=== PATIENT | female | born 1935 | race Caucasian/White ===

== ENCOUNTER → 2016-09-12 | Outpatient (REF) ==
[2016-09-12 09:27] LABS: MEAN CORPUSCULAR HEMOGLOBIN 30.8 pg (27.0-33.0); MEAN CORPUSCULAR HGB CONC 33.1 g/dl (32.0-36.5); MEAN CORPUSCULAR VOLUME 93.1 fl (80.0-96.0); RED CELL DISTRIBUTION WIDTH 12.9 % (11.5-14.5); WHITE BLOOD COUNT 6.7 K/mm3 (4.0-10.0)
[2016-09-12 10:30] LABS: ALBUMIN 3.4 GM/DL (3.2-5.2); ALKALINE PHOSPHATASE 46 U/L (45-117); ALT/SGPT 28 U/L (12-78); ANION GAP 8 MEQ/L (8-16); AST/SGOT 26 U/L (15-37); BILIRUBIN,TOTAL 0.4 MG/DL (0.2-1.0); BLOOD UREA NITROGEN 26 MG/DL (7-18); CALCIUM LEVEL 9.6 MG/DL (8.8-10.2); CARBON DIOXIDE LEVEL 26 MEQ/L (21-32); CHLORIDE LEVEL 108 MEQ/L (98-107); CREATININE FOR GFR 0.88 MG/DL (0.55-1.02); GLOMERULAR FILTRATION RATE > 60.0 (>32); GLUCOSE, FASTING 115 MG/DL (83-110); POTASSIUM SERUM 4.2 MEQ/L (3.5-5.1); SODIUM LEVEL 142 MEQ/L (136-145); TOTAL PROTEIN 6.5 GM/DL (6.4-8.2)
== END ==
LOC: SKLAB2 08:00
PROVIDERS: ATTEND Internal Medicine
DX: E03.9 Hypothyroidism, unspecified (principal)

== ENCOUNTER → 2016-10-13 | Outpatient (REF) ==
[2016-10-13 13:37] LABS: FREE T4 1.44 NG/DL (0.76-1.46)
== END ==
LOC: SKLAB2 07:00
PROVIDERS: ATTEND Internal Medicine
DX: E07.9 Disorder of thyroid, unspecified (principal)

== ENCOUNTER → 2016-11-24 | Outpatient (REF) | payer MEDICARE, MEDICAID | LOC: SKLAB2 07:30 | PROVIDERS: ATTEND Internal Medicine | DX: E03.9 Hypothyroidism, unspecified (principal) ==

== ENCOUNTER → 2016-12-05 | Outpatient (REF) | payer MEDICARE, MEDICAID ==
[2016-12-05 09:09] LABS: ANION GAP 12 MEQ/L (8-16); BLOOD UREA NITROGEN 22 MG/DL (7-18); CARBON DIOXIDE LEVEL 24 MEQ/L (21-32); CHLORIDE LEVEL 107 MEQ/L (98-107); GLOMERULAR FILTRATION RATE > 60.0 (>32); GLUCOSE, FASTING 91 MG/DL (83-110); POTASSIUM SERUM 4.4 MEQ/L (3.5-5.1); SODIUM LEVEL 143 MEQ/L (136-145)
== END ==
LOC: SKLAB2 07:30
PROVIDERS: ATTEND Internal Medicine
DX: I10 Essential (primary) hypertension (principal)

== ENCOUNTER → 2017-03-13 | Outpatient (REF) | payer MEDICARE, MEDICAID ==
[2017-03-13 09:51] LABS: ANION GAP 5 MEQ/L (8-16); BLOOD UREA NITROGEN 31 MG/DL (7-18); CALCIUM LEVEL 9.2 MG/DL (8.8-10.2); CARBON DIOXIDE LEVEL 29 MEQ/L (21-32); CHLORIDE LEVEL 107 MEQ/L (98-107); CREATININE FOR GFR 0.74 MG/DL (0.55-1.02); GLOMERULAR FILTRATION RATE > 60.0 (>32); GLUCOSE, FASTING 85 MG/DL (83-110); POTASSIUM SERUM 4.2 MEQ/L (3.5-5.1); SODIUM LEVEL 141 MEQ/L (136-145)
== END ==
LOC: SKLAB4 07:05
PROVIDERS: ATTEND Internal Medicine
DX: I50.9 Heart failure, unspecified (principal); E03.9 Hypothyroidism, unspecified; E11.9 Type 2 diabetes mellitus without complications

== ENCOUNTER → 2017-06-12 | Outpatient (REF) | payer MEDICARE, MEDICAID ==
[2017-06-12 08:44] LABS: ANION GAP 3 MEQ/L (8-16); BLOOD UREA NITROGEN 20 MG/DL (7-18); CALCIUM LEVEL 8.9 MG/DL (8.8-10.2); CARBON DIOXIDE LEVEL 33 MEQ/L (21-32); CHLORIDE LEVEL 106 MEQ/L (98-107); CREATININE FOR GFR 0.69 MG/DL (0.55-1.30); GLOMERULAR FILTRATION RATE > 60.0 (>32); GLUCOSE, FASTING 89 MG/DL (70-100); POTASSIUM SERUM 4.4 MEQ/L (3.5-5.1); SODIUM LEVEL 142 MEQ/L (136-145)
== END ==
LOC: SKLAB4 09:32
DX: I10 Essential (primary) hypertension (principal)
CPT/HCPCS: 36415

== ENCOUNTER → 2017-09-08 | Outpatient (REF) | payer MEDICARE, MEDICAID ==
[2017-09-08 12:47] LABS: CHOLESTEROL LEVEL 184 MG/DL (<200); HDL CHOLESTEROL 44 MG/DL (>40); TRIGLYCERIDES LEVEL 368 MG/DL (<150)
[2017-09-08 12:48] LABS: CHOLESTEROL RISK RATIO 4.181 (<5); LDL CHOLESTEROL 66.4 MG/DL (<100); NON-HDL-C 140 MG/DL
== END ==
LOC: SKLAB4 07:06
DX: E78.5 Hyperlipidemia, unspecified (principal)
CPT/HCPCS: 80061

== ENCOUNTER → 2017-09-11 | Outpatient (REF) | payer MEDICARE, MEDICAID ==
[2017-09-11 10:08] LABS: ANION GAP 7 MEQ/L (8-16); BLOOD UREA NITROGEN 26 MG/DL (7-18); CARBON DIOXIDE LEVEL 29 MEQ/L (21-32); CHLORIDE LEVEL 106 MEQ/L (98-107); CREATININE FOR GFR 0.73 MG/DL (0.55-1.30); GLOMERULAR FILTRATION RATE > 60.0 (>32); GLUCOSE, FASTING 92 MG/DL (70-100); SODIUM LEVEL 142 MEQ/L (136-145)
[2017-09-11 11:05] LABS: ESTIMATED AVERAGE GLUCOSE 114 MG/DL (60-110); HEMOGLOBIN A1c 5.6 %
== END ==
LOC: SKLAB4 09:49
DX: E78.5 Hyperlipidemia, unspecified (principal); E11.9 Type 2 diabetes mellitus without complications; E03.9 Hypothyroidism, unspecified; I50.9 Heart failure, unspecified
CPT/HCPCS: 84443

== ENCOUNTER → 2017-12-11 | Outpatient (REF) | payer MEDICARE, MEDICAID ==
[2017-12-11 10:43] LABS: ANION GAP 8 MEQ/L (8-16); BLOOD UREA NITROGEN 28 MG/DL (7-18); CARBON DIOXIDE LEVEL 29 MEQ/L (21-32); CHLORIDE LEVEL 105 MEQ/L (98-107); CREATININE FOR GFR 0.81 MG/DL (0.55-1.30); GLOMERULAR FILTRATION RATE > 60.0 (>32); GLUCOSE, FASTING 126 MG/DL (70-100); POTASSIUM SERUM 4.1 MEQ/L (3.5-5.1); SODIUM LEVEL 142 MEQ/L (136-145)
== END ==
LOC: SKLAB4 10:07
DX: N18.9 Chronic kidney disease, unspecified (principal)
CPT/HCPCS: 80048

== ENCOUNTER → 2018-03-12 | Outpatient (REF) | payer MEDICARE, MEDICAID ==
[2018-03-12 08:55] LABS: ANION GAP 4 MEQ/L (8-16); BLOOD UREA NITROGEN 27 MG/DL (7-18); CALCIUM LEVEL 8.9 MG/DL (8.8-10.2); CARBON DIOXIDE LEVEL 32 MEQ/L (21-32); CHLORIDE LEVEL 104 MEQ/L (98-107); CHOLESTEROL LEVEL 166 MG/DL (<200); CHOLESTEROL RISK RATIO 4.048 (<5); GLOMERULAR FILTRATION RATE > 60.0 (>32); GLUCOSE, FASTING 101 MG/DL (70-100); HDL CHOLESTEROL 41 MG/DL (>40); LDL CHOLESTEROL 77 MG/DL (<100); NON-HDL-C 125 MG/DL; POTASSIUM SERUM 4.3 MEQ/L (3.5-5.1); SODIUM LEVEL 140 MEQ/L (136-145); TRIGLYCERIDES LEVEL 238 MG/DL (<150)
[2018-03-12 10:26] LABS: ESTIMATED AVERAGE GLUCOSE 131 MG/DL (60-110); HEMOGLOBIN A1c 6.2 %
== END ==
LOC: SKLAB4 11:27
DX: E03.9 Hypothyroidism, unspecified (principal); I50.9 Heart failure, unspecified; E11.9 Type 2 diabetes mellitus without complications
CPT/HCPCS: 84443

== ENCOUNTER → 2018-06-11 | Outpatient (REF) | payer MEDICARE, MEDICAID ==
[2018-06-11 09:32] LABS: BLOOD UREA NITROGEN 22 MG/DL (7-18); CALCIUM LEVEL 8.7 MG/DL (8.8-10.2); CARBON DIOXIDE LEVEL 31 MEQ/L (21-32); CHLORIDE LEVEL 105 MEQ/L (98-107); CREATININE FOR GFR 0.71 MG/DL (0.55-1.30); GLOMERULAR FILTRATION RATE > 60.0 (>32); GLUCOSE, FASTING 98 MG/DL (70-100); POTASSIUM SERUM 4.2 MEQ/L (3.5-5.1); SODIUM LEVEL 141 MEQ/L (136-145)
== END ==
LOC: SKLAB4 12:34
PROVIDERS: ATTEND Internal Medicine
DX: N18.9 Chronic kidney disease, unspecified (principal)

== ENCOUNTER → 2018-09-10 | Outpatient (REF) | payer MEDICARE, MEDICAID ==
[2018-09-10 08:27] LABS: HEMOGLOBIN A1c 6.2 %
[2018-09-10 08:39] LABS: BLOOD UREA NITROGEN 23 MG/DL (7-18); CALCIUM LEVEL 9.4 MG/DL (8.8-10.2); CARBON DIOXIDE LEVEL 34 MEQ/L (21-32); CHLORIDE LEVEL 106 MEQ/L (98-107); CHOLESTEROL LEVEL 176 MG/DL (<200); CHOLESTEROL RISK RATIO 4.512 (<5); CREATININE FOR GFR 0.76 MG/DL (0.55-1.30); GLOMERULAR FILTRATION RATE > 60.0 (>32); GLUCOSE, FASTING 88 MG/DL (70-100); HDL CHOLESTEROL 39 MG/DL (>40); LDL CHOLESTEROL 57 MG/DL (<100); NON-HDL-C 137 MG/DL; POTASSIUM SERUM 4.3 MEQ/L (3.5-5.1); SODIUM LEVEL 143 MEQ/L (136-145); TRIGLYCERIDES LEVEL 399 MG/DL (<150)
== END ==
LOC: SKLAB4 08:47
PROVIDERS: ATTEND Internal Medicine
DX: E03.9 Hypothyroidism, unspecified (principal); E11.9 Type 2 diabetes mellitus without complications; N18.9 Chronic kidney disease, unspecified

== ENCOUNTER → 2018-12-10 | Outpatient (REF) | payer MEDICARE, MEDICAID ==
[2018-12-10 09:13] LABS: BLOOD UREA NITROGEN 23 MG/DL (7-18); CALCIUM LEVEL 9.4 MG/DL (8.8-10.2); CARBON DIOXIDE LEVEL 31 MEQ/L (21-32); CHLORIDE LEVEL 104 MEQ/L (98-107); CREATININE FOR GFR 0.78 MG/DL (0.55-1.30); GLOMERULAR FILTRATION RATE > 60.0 (>32); GLUCOSE, FASTING 89 MG/DL (70-100); POTASSIUM SERUM 4.2 MEQ/L (3.5-5.1); SODIUM LEVEL 142 MEQ/L (136-145)
== END ==
LOC: SKLAB4 10:03
PROVIDERS: ATTEND Internal Medicine
DX: N18.9 Chronic kidney disease, unspecified (principal)

== ENCOUNTER → 2018-12-28 | Outpatient (REF) | payer MEDICARE, MEDICAID ==
[2018-12-28 00:26] LABS: HEMATOCRIT 45.1 % (36.0-47.0); MEAN CORPUSCULAR HEMOGLOBIN 31.2 pg (27.0-33.0); MEAN CORPUSCULAR HGB CONC 33.3 g/dl (32.0-36.5); MEAN CORPUSCULAR VOLUME 93.8 fl (80.0-96.0); PLATELET COUNT, AUTOMATED 258 10^3/uL (150-450); RED BLOOD COUNT 4.81 10^6/uL (4.00-5.40); WHITE BLOOD COUNT 10.9 10^3/uL (4.0-10.0)
[2018-12-28 01:06] LABS: CREATININE FOR GFR 0.96 MG/DL (0.55-1.30); GLOMERULAR FILTRATION RATE 59.2 (>32); POTASSIUM SERUM 4.3 MEQ/L (3.5-5.1)
== END ==
LOC: SKLAB4 12-27 23:49
PROVIDERS: ATTEND Internal Medicine
DX: I47.9 Paroxysmal tachycardia, unspecified (principal); E78.5 Hyperlipidemia, unspecified; E03.9 Hypothyroidism, unspecified; E11.9 Type 2 diabetes mellitus without complications; I50.9 Heart failure, unspecified

== ENCOUNTER → 2018-12-28 | Outpatient (REF) | payer MEDICARE, MEDICAID ==
--- NOTE | 2018-12-28 23:20 | ECGEPIP ---
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
== END ==
LOC: SKLAB4 10:54
PROVIDERS: ATTEND Internal Medicine
DX: R00.9 Unspecified abnormalities of heart beat (principal)

== ENCOUNTER → 2019-03-11 | Outpatient (REF) | payer MEDICARE, MEDICAID ==
[2019-03-11 09:45] LABS: BLOOD UREA NITROGEN 19 MG/DL (7-18); CALCIUM LEVEL 9.2 MG/DL (8.8-10.2); CARBON DIOXIDE LEVEL 34 MEQ/L (21-32); CHLORIDE LEVEL 107 MEQ/L (98-107); CHOLESTEROL LEVEL 137 MG/DL (<200); CHOLESTEROL RISK RATIO 3.425 (<5); CREATININE FOR GFR 0.76 MG/DL (0.55-1.30); GLOMERULAR FILTRATION RATE > 60.0 (>32); GLUCOSE, FASTING 87 MG/DL (70-100); HDL CHOLESTEROL 40 MG/DL (>40); LDL CHOLESTEROL 51 MG/DL (<100); NON-HDL-C 97 MG/DL; POTASSIUM SERUM 4.3 MEQ/L (3.5-5.1); SODIUM LEVEL 144 MEQ/L (136-145); TRIGLYCERIDES LEVEL 231 MG/DL (<150)
== END ==
LOC: SKLAB4 10:20
PROVIDERS: ATTEND Internal Medicine
DX: E78.5 Hyperlipidemia, unspecified (principal); E03.9 Hypothyroidism, unspecified; Z79.899 Other long term (current) drug therapy

== ENCOUNTER → 2019-06-18 | Outpatient (REF) | payer MEDICARE, MEDICAID ==
[2019-06-18 07:35] LABS: BLOOD UREA NITROGEN 16 MG/DL (7-18); CALCIUM LEVEL 9.3 MG/DL (8.8-10.2); CARBON DIOXIDE LEVEL 33 MEQ/L (21-32); CHLORIDE LEVEL 106 MEQ/L (98-107); CREATININE FOR GFR 0.76 MG/DL (0.55-1.30); GLOMERULAR FILTRATION RATE > 60.0 (>32); GLUCOSE, FASTING 87 MG/DL (70-100); POTASSIUM SERUM 4.4 MEQ/L (3.5-5.1); SODIUM LEVEL 144 MEQ/L (136-145)
== END ==
LOC: SKLAB4 10:27
PROVIDERS: ATTEND Internal Medicine
DX: I10 Essential (primary) hypertension (principal)

== ENCOUNTER → 2019-09-10 | Outpatient (REF) | payer MEDICARE, MEDICAID ==
[2019-09-10 09:22] LABS: HEMOGLOBIN A1c 5.9 %
[2019-09-10 09:44] LABS: BLOOD UREA NITROGEN 22 MG/DL (7-18); CALCIUM LEVEL 8.8 MG/DL (8.8-10.2); CARBON DIOXIDE LEVEL 31 MEQ/L (21-32); CHLORIDE LEVEL 106 MEQ/L (98-107); CHOLESTEROL LEVEL 132 MG/DL (<200); CHOLESTEROL RISK RATIO 3.771 (<5); GLOMERULAR FILTRATION RATE > 60.0 (>32); GLUCOSE, FASTING 85 MG/DL (70-100); HDL CHOLESTEROL 35 MG/DL (>40); LDL CHOLESTEROL 43 MG/DL (<100); NON-HDL-C 97 MG/DL; POTASSIUM SERUM 4.1 MEQ/L (3.5-5.1); SODIUM LEVEL 143 MEQ/L (136-145); THYROID STIMULATING HORMONE 0.508 uIU/ML (0.358-3.740); TRIGLYCERIDES LEVEL 272 MG/DL (<150)
== END ==
LOC: SKLAB4 09:55
PROVIDERS: ATTEND Internal Medicine
DX: N18.9 Chronic kidney disease, unspecified (principal); E78.5 Hyperlipidemia, unspecified; E03.9 Hypothyroidism, unspecified; Z79.899 Other long term (current) drug therapy

== ENCOUNTER → 2019-12-10 | Outpatient (REF) | payer MEDICARE, MEDICAID ==
[~2019-12-10] MED LIST: ACET-907 PO; CALC600T66 PO; COLA100C5 PO; DULC10SU2 PR; ELIQ5TAB PO; METO1TAB87 PO; MILKSUS21 PO; MULTCAP PO; OLAN2.5T25 PO; POLYOPD OU; PRIL20TA2 PO; PROZ10CA7 PO; SYNT75TA PO; TOPR25TA PO
[2019-12-10 08:52] LABS: BLOOD UREA NITROGEN 13 MG/DL (7-18); CALCIUM LEVEL 8.8 MG/DL (8.8-10.2); CARBON DIOXIDE LEVEL 29 MEQ/L (21-32); CHLORIDE LEVEL 108 MEQ/L (98-107); CREATININE FOR GFR 0.66 MG/DL (0.55-1.30); GLOMERULAR FILTRATION RATE > 60.0 (>32); GLUCOSE, FASTING 83 MG/DL (70-100); POTASSIUM SERUM 4.3 MEQ/L (3.5-5.1); SODIUM LEVEL 143 MEQ/L (136-145)
== END ==
LOC: SKLAB4 11:39
DX: I25.10 Atherosclerotic heart disease of native coronary artery without angina pectoris (principal); I50.9 Heart failure, unspecified

== ENCOUNTER 2019-12-29 10:54 | Observation (INO) | payer MEDICAID, MEDICARE ==
[~2019-12-29] VITALS: Ht 165.1 cm; Wt 72.8 kg
[2019-12-29] MEDS: METOPROLOL 5 MG/5 ML VIAL IV SCH ×3 (11:23→11:45)
[2019-12-29] MEDS ORDERED: DIGOXIN INJ 0.5 MG/2 ML AMP (J1160) IV STA (11:31)
[2019-12-29 11:40] LABS: FREE T4 1.38 NG/DL (0.76-1.46); MAGNESIUM LEVEL 1.6 MG/DL (1.8-2.4); THYROID STIMULATING HORMONE 1.06 uIU/ML (0.358-3.740)
[2019-12-29 11:55] LABS: INR 1.04; PROTHROMBIN TIME 13.8 SECONDS (12.5-14.3)
[2019-12-29 11:56] LABS: PARTIAL THROMBOPLASTIN TIME 28.4 SECONDS (24.2-38.5)
[2019-12-29] MEDS ORDERED: MAG SULF 1GM/100ML (MAG RUN) 1 GM in IV 1 EA IV ONE (12:00)
--- NOTE | 2019-12-29 12:07 | REPVR ---
PROCEDURE INFORMATION: Exam: XR Chest, 1 View Exam date and time: 12/29/2019 11:18 AM Age: 84 years old Clinical indication: Shortness of breath; Additional info: Chest pain TECHNIQUE: Imaging protocol: XR of the chest Views: 1 view. COMPARISON: No relevant prior studies available. FINDINGS: Lungs: Asymmetric left basilar airspace/pleural disease obscuring the left costophrenic angle. Emphysematous change and mild interstitial prominence. Heart/Mediastinum: No cardiomegaly. Vasculature: Calcification of the thoracic aorta. Bones/joints: Osteopenia and degenerative change. Left rib fractures, of uncertain age. IMPRESSION: 1. Asymmetric left basilar airspace/pleural disease obscuring the left costophrenic angle. 2. Osteopenia and left rib fractures, of uncertain age. Electronically signed by: [place] Lopes On 12/29/2019 12:07:17 PM
[2019-12-29] MEDS ORDERED: MILKSUS21 PO (13:26)
[2019-12-29] MEDS ORDERED: SYNT75TA PO (13:26)
[2019-12-29] MEDS ORDERED: OLAN2.5T25 PO (13:26)
[2019-12-29] MEDS ORDERED: COLA100C5 PO (13:26)
[2019-12-29] MEDS ORDERED: MULTCAP PO (13:26)
[2019-12-29] MEDS ORDERED: POLYOPD OU (13:26)
[2019-12-29] MEDS ORDERED: PROZ10CA7 PO (13:26)
[2019-12-29] MEDS ORDERED: ACET-907 PO (13:26)
[2019-12-29] MEDS ORDERED: DULC10SU2 PR (13:26)
[2019-12-29] MEDS ORDERED: TOPR25TA PO (13:26)
[2019-12-29] MEDS ORDERED: CALC600T66 PO (13:26)
[2019-12-29] MEDS ORDERED: POLYVINYL ALCOHOL OPHTH SOLN 15 ML(LIQUITEARS) OU PRN (14:00)
[2019-12-29] MEDS ORDERED: BISACODYL 10 MG SUPP PR PRN (14:00)
[2019-12-29] MEDS ORDERED: MOM 30ML SUSPENSION UDC PO PRN (14:00)
[2019-12-29] MEDS ORDERED: ACETAMINOPHEN TAB 650MG DOSE (2X325MG) PO PRN (14:00)
--- NOTE | 2019-12-29 14:24 | HPEPDOC ---
[facility] Medical History & Physical Date of Admission Dec 29, 2019 Date of Service: Dec 29, 2019 History and Physical CHIEF COMPLAINT: Palpitations HISTORY OF PRESENT ILLNESS: 84-year-old female lives at [facility] into the emergency room with complaints of palpitations for 2 days, feeling sick to her stomach, unable to sleep last night due to persistent on and off symptoms. Patient complain of diaphoresis with occasional chest pain without shortness of breath, nausea, vomiting, or epigastric discomfort. She denies any fever, chills, lightheadedness or dizziness. In the ER she was found to have atrial fibrillation, new onset, ventricular rate of 182 with interventricular conduction delay. Patient was given metoprolol and digoxin with rate controlled to the 90BPM AND systolic pressure of 120-1 30 mmHg. Patient otherwise denies weight gain, weight loss, changes in appetite, changes in vision, hearing loss, tinnitus, vertigo. She denies any hematemesis, bright blood per rectum, melena, black tarry stools, dysuria, urgency, frequency, fever, chills, flank pain, diarrhea or constipation, upper or lower extremity weakness, numbness or paresthesias. 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 [facility], gastroesophageal reflux disease. Explosive personality disorder, obesity, type 2 diabetes, hyperlipidemia, hypertension, mild . History of left distal radial fracture. 2011. Right breast ductal epithelial hyperplasia, apocrine metaplasia 2013. Diastolic heart failure, borderline pulmonary hypertension, trace mitral regurg 2013 PAST SURGICAL HISTORY: Stereotactic biopsy of the right breast 2013. The right breast core biopsy by interventional radiology. 2013, repeated July 2013, left breast mastectomy 2011 right medial breast biopsy Pathology showing papillary ductal hyperplasia SOCIAL HISTORY: Lives in a shelter. Denies alcohol, tobacco, recreational drug use. Healthcare proxy is her sister, Brandon Hu patient's sister, Yelena daley was her previous healthcare proxy was now of cancer FAMILY HISTORY: Mother and father . Noncontributory due to age ALLERGIES: Lisinopril causing cough REVIEW OF SYSTEMS: 12 point systems review negative. Has had some positive findings on history of presenting illness HOME MEDICATIONS: Please see below. PHYSICAL EXAMINATION: VITAL SIGNS: See below GENERAL APPEARANCE: Awake, alert, oriented 3, answering questions appropriately. No respiratory distress. Edentulous difficult to understand HEENT: Face is symmetric. No facial drooping No JVD or thyromegaly. Pupils were unreactive. Extra muscles are intact. Moist mucous membranes. No cervical lymphadenopathy. Tongue is midline CARDIOVASCULAR: S1, S2, irregularly irregular, tachycardic 2/6 systolic ejection murmur at the apex without radiation. No pericardial friction rub LUNGS: Clear to auscultation. No wheezing, rales or rhonchi. Air entry is equal. No kyphosis or scoliosis. No use of respiratory accessory muscles. No adventitious breath sounds ABDOMEN: These nontender, nondistended, positive bowel sounds 4 quadrants. No hepatosplenomegaly. No abdominal bruit MUSCULOSKELETAL/. Extremities: No cyanosis, clubbing EKG atrial fibrillation, ventricular rate of 182 interventricular conduction delay LABORATORY DATA: See below. ASSESSMENT: 84-year-old female lives at [facility] into the emergency room with complaints of palpitations for 2 days, feeling sick to her stomach, unable to sleep last night due to persistent on and off symptoms. Patient complain of diaphoresis with occasional chest pain without shortness of breath, nausea, vomiting, or epigastric discomfort. She denies any fever, chills, lightheadedness or dizziness. In the ER she was found to have atrial fibrillation, new onset, ventricular rate of 182 with interventricular conduction delay. Patient was given metoprolol and digoxin with rate controlled to the 90BPM AND systolic pressure of 120-1 30 mmHg. Patient otherwise denies weight gain, weight loss, changes in appetite, changes in vision, hearing loss, tinnitus, vertigo. She denies any hematemesis, bright blood per rectum, melena, black tarry stools, dysuria, urgency, frequency, fever, chills, flank pain, diarrhea or constipation, upper or lower extremity weakness, numbness or paresthesias. Hospitalist was asked to admit for new-onset atrial fibrillation with rapid ventricular response Atrial fibrillation with rapid ventricular response, new onset Hypertension, controlled. Type 2 diabetes Hyperlipidemia Obesity, BMI 27. History of left breast invasive ductal carcinoma, status post mastectomy. Chronic right bundle branch block. Gastroesophageal reflux disease. History of right breast ductal epithelial hyperplasia, apocrine metaplasia. History diastolic congestive heart failure with preserved systolic function, compensated. Trace mitral regurgitation. Borderline pulmonary hypertension PLAN: The patient will be admitted for atrial fibrillation with rapid ventricular response, which is new onset. She has been given metoprolol and digoxin in the emergency room with good response and rate control. She'll be admitted to the progressive care unit, telemetry monitoring, cycle cardiac markers every 6 hours 2 starting at 1800. Patient will be continued on metoprolol 25 mg every 6 hourly with holding parameters for systolic pressure less than 100 and heart rate less than 90. She will be started on eloquent dose renally dosed twice a day as well as continued on PPI to prevent GI bleed. If patient remains rate controlled, she may be discharged back to shelter in the morning. She appears to be euvolemic despite A. fib with RVR for 2 days, her heart failure appears to be compensated. She'll be resumed on her home dose of medications. PT, OT evaluation and discharge plans for 12/30/2019. Vital Signs Vital Signs Date Time Temp Pulse Resp B/P (MAP) Pulse Ox O2 Delivery O2 Flow Rate FiO2 12/29/19 13:30 91 19 124/66 (85) 96 Room Air 12/29/19 11:16 97.8 Laboratory Data Labs 24H Laboratory Tests 2 12/29/19 11:13: Prothrombin Time 13.8, Prothromb Time International Ratio 1.04, Activated Partial Thromboplast Time 28.4, Magnesium Level 1.6L, Thyroid Stimulating Hormone (TSH) 1.060, Free Thyroxine 1.38 Home Medications Scheduled Calcium Carbonate/Vitamin D3 (Calcium 600 + Vit D Tablet) 1 Each Tablet, 1 EACH PO DAILY Docusate Sodium (Colace) 100 Mg Capsule, 200 MG PO BID Fluoxetine HCl (Prozac) 10 Mg Capsule, 30 MG PO DAILY Levothyroxine Sodium (Synthroid) 75 Mcg Tablet, 75 MCG PO DAILY Metoprolol Succinate (Toprol Xl) 25 Mg Tab.er.24h, 12.5 MG PO DAILY Multivitamin (Multivitamins) 1 Each Capsule, 1 CAP PO DAILY Olanzapine (Olanzapine) 2.5 Mg Tablet, 2.5 MG PO DAILY Scheduled PRN Acetaminophen (Tylenol) 325 Mg Tablet, 650 MG PO Q4H PRN for PAIN Bisacodyl (Dulcolax) 10 Mg Supp.rect, 10 MG [place] DAILY PRN for CONSTIPATION Magnesium Hydroxide (Milk of Magnesia) 400 Mg/5 Ml Oral.susp, 2,400 MG PO DAILY PRN for CONSTIPATION Polyvinyl Alcohol (Artificial Tears) 15 Ml Drops, 1 DROP OU BID PRN for DRY EYES Allergies Coded Allergies: lisinopril (Verified Allergy, Unknown, 12/29/19) A-FIB/CHADSVASC A-FIB History Current/History of A-Fib/PAF?: Yes Current PO Anticoag Therapy: Yes Age/Risk Factor Scoring CHADSVASC: CHADSVASC Response (Comments) Value Age Risk Factor Age >/= 75 years old 2 Gender Risk Factor Female 1 Hx of CHF Yes 1 Hx of HTN Yes 1 Hx of Stroke/TIA/or VTE No 0 Hx of Diabetes Yes 1 Hx of Vascular Disease No 0 Total 6 Treatment Treatment ordered: Apixaban TARIQ NOEL MD Dec 29, 2019 14:24
[2019-12-29 16:20] VITALS: BP 135/88
[2019-12-29] MEDS ORDERED: SLF 3 ML SYR IV PRN (17:15)
[2019-12-29] MEDS: OMEPRAZOLE 20 MG CAP PO SCH (17:54)
[2019-12-29] MEDS: METOPROLOL TART 25 MG TABLET PO SCH ×2 (17:55→23:37)
[2019-12-29 19:12] LABS: CK-MB VALUE MASS 1.3 NG/ML (<3.6); MB/CK RELATIVE INDEX 4.64 (< OR =4); TROPONIN I 0.05 NG/ML (< 0.10)
[2019-12-29 20:00] VITALS: BP 110/59
[2019-12-29] MEDS: DOCUSATE SODIUM 100 MG CAP PO SCH (21:09)
[2019-12-29] MEDS: SLF 3 ML SYR IV SCH (21:10)
[2019-12-29] MEDS: APIXABAN 5 MG TAB (ELIQUIS) PO SCH (21:10)
[2019-12-30] VITALS: BP 136/63
[2019-12-30 00:29] LABS: CK-MB VALUE MASS 1.1 NG/ML (<3.6); MB/CK RELATIVE INDEX 3.55 (< OR =4); TROPONIN I 0.06 NG/ML (< 0.10)
[2019-12-30 04:00] VITALS: BP 141/64
[2019-12-30 05:29] LABS: HEMATOCRIT 41.2 % (36.0-47.0); HEMOGLOBIN 13.8 g/dl (12.0-15.5); MEAN CORPUSCULAR HEMOGLOBIN 30.3 pg (27.0-33.0); MEAN CORPUSCULAR HGB CONC 33.5 g/dl (32.0-36.5); MEAN CORPUSCULAR VOLUME 90.4 fl (80.0-96.0); PLATELET COUNT, AUTOMATED 210 10^3/uL (150-450); RED BLOOD COUNT 4.56 10^6/uL (4.00-5.40); WHITE BLOOD COUNT 8.6 10^3/uL (4.0-10.0)
[2019-12-30 06:00] LABS: BLOOD UREA NITROGEN 31 MG/DL (7-18); CALCIUM LEVEL 8.7 MG/DL (8.8-10.2); CARBON DIOXIDE LEVEL 26 MEQ/L (21-32); CHLORIDE LEVEL 108 MEQ/L (98-107); CREATININE FOR GFR 0.74 MG/DL (0.55-1.30); DIGOXIN LEVEL 0.6 NG/ML (0.5-2.0); GLOMERULAR FILTRATION RATE > 60.0 (>32); GLUCOSE, FASTING 98 MG/DL (70-100); POTASSIUM SERUM 3.9 MEQ/L (3.5-5.1); SODIUM LEVEL 141 MEQ/L (136-145)
[2019-12-30] MEDS: METOPROLOL TART 25 MG TABLET PO SCH (06:00)
[2019-12-30] MEDS ORDERED: LEVOTHYROXINE 75MCG TABLET (0.075MG) PO SCH (06:00)
--- NOTE | 2019-12-30 06:13 | ECGEPIP ---
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 Order Number: [id number] Reading MD: Rancho Monaco Measurements Intervals [place] Rate: 182 P: [place]: 0 QRS: -69 QRSD: 131 T: 53 QT: 274 QTc: 477 Interpretive Statements ATRIAL TACHYCARDIA, POSSIBLE ATRIAL FLUTTER IN FIXED 2:1 RATIO RIGHT BUNDLE BRANCH BLOCK RHYTHM/RATE CHANGE COMPARED TO 12/28/18 Electronically Signed on 12-30-2019 6:13:01 EDT by Rancho Monaco
--- NOTE | 2019-12-30 06:14 | ECGEPIP ---
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 Order Number: [id number] Reading MD: Rancho Monaco Measurements Intervals [place] Rate: 87 P: 21 [place]: 144 QRS: -64 QRSD: 137 T: 5 QT: 368 QTc: 443 Interpretive Statements SINUS RHYTHM RIGHT BUNDLE BRANCH BLOCK POOR R WAVE PROGRESSION RHYTHM/RATE CHANGE COMPARED TO PRIOR ON SAME DATE Electronically Signed on 12-30-2019 6:13:38 EDT by Rancho Monaco
[2019-12-30] MEDS: SLF 3 ML SYR IV SCH (06:26)
[2019-12-30] MEDS ORDERED: ELIQ5TAB PO (07:20)
[2019-12-30] MEDS ORDERED: PRIL20TA2 PO (07:20)
[2019-12-30] MEDS ORDERED: METO1TAB87 PO (07:20)
--- NOTE | 2019-12-30 07:31 | DS.PDOC ---
Discharge Summary General Date of Admission Dec 29, 2019 at 13:50 Date of Discharge dec 30, 2019 Discharge Summary DISCHARGE DIAGNOSES: Atrial fibrillation with rapid ventricular response, new onset Hypertension, controlled. Type 2 diabetes Hyperlipidemia Obesity, BMI 27. History of left breast invasive ductal carcinoma, status post mastectomy. Chronic right bundle branch block. Gastroesophageal reflux disease. History of right breast ductal epithelial hyperplasia, apocrine metaplasia. History diastolic congestive heart failure with preserved systolic function, compensated. Trace mitral regurgitation. Borderline pulmonary hypertension Osteopenia Left rib fractures, age indeterminate DISCHARGE MEDICATIONS: PLS SEE BELOW DISCHARGE INSTRUCTIONS: monitor for GI bleed, fall precautions due to new eliquis for Afib. Hold metoprolol for HR<60 and sbp<110mmHg. Fu with pcp within 1 wk of discharge. HISTORY OF PRESENT ILLNESS: 84-year-old female lives at [facility] into the emergency room with complaints of palpitations for 2 days, feeling sick to her stomach, unable to sleep last night due to persistent on and off symptoms. Patient complain of diaphoresis with occasional chest pain without shortness of breath, nausea, vomiting, or epigastric discomfort. She denies any fever, chills, lightheadedness or dizziness. In the ER she was found to have atrial fibrillation, new onset, ventricular rate of 182 with interventricular conduction delay. Patient was given metoprolol and digoxin with rate controlled to the 90BPM AND systolic pressure of 120-1 30 mmHg. Patient otherwise denies we ight gain, weight loss, changes in appetite, changes in vision, hearing loss, tinnitus, vertigo. She denies any hematemesis, bright blood per rectum, melena, black tarry stools, dysuria, urgency, frequency, fever, chills, flank pain, diarrhea or constipation, upper or lower extremity weakness, numbness or paresthesias. Hospitalist was asked to admit for new-onset atrial fibrillation with rapid ventricular response. HOSPITAL COURSE She received one dose of digoxin with level of 0.6 the next morning, and metoprolol 25 mg po q6hrs. Tele 24 hrs after admission showed sinus rhythm. Her metoprolol was changed to 25mg bid, and digoxin was discontinued as the patient's blood pressure was adequate to continue on metoprolol. Pt had no recurrent complaints of palpitations, and denied chest pain, pressure, tightness, or sob. She was discharged in stable condition to [facility]. Due to new eliquis for Afib, she was started on prilosec to decrease risk of GI bleed, and to be monitored for GI bleed or falls. Outpt PCP to decide if pt can be taken off of eliquis should recurrent falls or GI bleed occur after hospital discharge. DISCHARGE PHYSICAL EXAMINATION: VITAL SIGNS: See below GENERAL APPEARANCE: Awake, alert, oriented 3, answering questions appropriately. No respiratory distress. Edentulous difficult to understand HEENT: Face is symmetric. No facial drooping No JVD or thyromegaly. Pupils were unreactive. Extra muscles are intact. Moist mucous membranes. No cervical lymphadenopathy. Tongue is midline CARDIOVASCULAR: S1, S2, irregularly irregular, tachycardic 2/6 systolic ejection murmur at the apex without radiation. No pericardial friction rub LUNGS: Clear to auscultation. No wheezing, rales or rhonchi. Air entry is equal. No kyphosis or scoliosis. No use of respiratory accessory muscles. No adventitious breath sounds ABDOMEN: These nontender, nondistended, positive bowel sounds 4 quadrants. No hepatosplenomegaly. No abdominal bruit MUSCULOSKELETAL/. Extremities: No cyanosis, clubbing EKG atrial fibrillation, ventricular rate of 182 interventricular conduction delay ALLERGIES: Lisinopril causing cough LABORATORY DATA: See below. IMAGING STUDIES: PROCEDURE INFORMATION: Exam: XR Chest, 1 View Exam date and time: 12/29/2019 11:18 AM Age: 84 years old Clinical indication: Shortness of breath; Additional info: Chest pain TECHNIQUE: Imaging protocol: XR of the chest Views: 1 view. COMPARISON: No relevant prior studies available. FINDINGS: Lungs: Asymmetric left basilar airspace/pleural disease obscuring the left costophrenic angle. Emphysematous change and mild interstitial prominence. Heart/Mediastinum: No cardiomegaly. Vasculature: Calcification of the thoracic aorta. Bones/joints: Osteopenia and degenerative change. Left rib fractures, of uncertain age. IMPRESSION: 1. Asymmetric left basilar airspace/pleural disease obscuring the left costophrenic angle. 2. Osteopenia and left rib fractures, of uncertain age. TIME SPENT ON DISCHARGE: 30 min. Vital Signs/I&Os Vital Signs Date Time Temp Pulse Resp B/P (MAP) Pulse Ox O2 Delivery O2 Flow Rate FiO2 12/30/19 06:00 58 140/60 12/30/19 04:00 97.3 18 94 Room Air I&O- Last 24 Hours up to 6 AM 12/30/19 06:00 Intake Total 700 ml Output Total 0 ml Balance 700 ml Laboratory Data Labs 24H Laboratory Tests 2 12/29/19 11:13: Prothrombin Time 13.8, Prothromb Time International Ratio 1.04, Activated Partial Thromboplast Time 28.4, Magnesium Level 1.6L, Thyroid Stimulating Hormone (TSH) 1.060, Free Thyroxine 1.38 12/29/19 18:12: Total Creatine Kinase 28, Creatine Kinase MB 1.3, Creatine Kinase MB Relative Index 4.64H, Troponin I 0.05 12/29/19 23:43: Total Creatine Kinase 31, Creatine Kinase MB 1.1, Creatine Kinase MB Relative Index 3.55, Troponin I 0.06 12/30/19 05:03: Nucleated Red Blood Cells % (auto) 0.0, Anion Gap 7L, Glomerular Filtration Rate > 60.0, Calcium Level 8.7L, Digoxin Level 0.6 CBC/BMP Laboratory Tests 12/30/19 05:03 Discharge Medications Scheduled Apixaban (Eliquis) 5 Mg Tablet, 5 MG PO BID Calcium Carbonate/Vitamin D3 (Calcium 600 + Vit D Tablet) 1 Each Tablet, 1 EACH PO DAILY, (Reported) Docusate Sodium (Colace) 100 Mg Capsule, 200 MG PO BID, (Reported) Fluoxetine HCl (Prozac) 10 Mg Capsule, 30 MG PO DAILY, (Reported) Levothyroxine Sodium (Synthroid) 75 Mcg Tablet, 75 MCG PO DAILY, (Reported) Metoprolol Tartrate (Metoprolol Tartrate) 25 Mg Tablet, 25 MG PO BID Multivitamin (Multivitamins) 1 Each Capsule, 1 CAP PO DAILY, (Reported) Olanzapine (Olanzapine) 2.5 Mg Tablet, 2.5 MG PO DAILY, (Reported) Omeprazole Magnesium (Prilosec Otc) 20 Mg Tablet.dr, 20 MG PO DAILY Scheduled PRN Acetaminophen (Tylenol) 325 Mg Tablet, 650 MG PO Q4H PRN for PAIN, (Reported) Bisacodyl (Dulcolax) 10 Mg Supp.rect, 10 MG [place] DAILY PRN for CONSTIPATION, (Reported) Magnesium Hydroxide (Milk of Magnesia) 400 Mg/5 Ml Oral.susp, 2,400 MG PO DAILY PRN for CONSTIPATION, (Reported) Polyvinyl Alcohol (Artificial Tears) 15 Ml Drops, 1 DROP OU BID PRN for DRY EYES, (Reported) Allergies Coded Allergies: lisinopril (Verified Allergy, Unknown, 12/29/19) TARIQ NOEL MD Dec 30, 2019 07:29
[2019-12-30 08:00] VITALS: BP 158/82
[2019-12-30] MEDS ORDERED: MULTIVITAMINS/MINERALS THERAP 1 TAB PO SCH (09:00)
[2019-12-30] MEDS ORDERED: PREVNAR 13 VACCINE SYRINGE IM ONE (09:00)
[2019-12-30] MEDS ORDERED: OLANZapine 2.5MG TABLET PO SCH (09:00)
[2019-12-30] MEDS ORDERED: FLUoxetine 10 MG CAP PO SCH (09:00)
[2019-12-30] MEDS ORDERED: FLUBLOK(EGG FREE)(QUAD)INFLUENZA VACC 0.5ML SYRINGE 18YRS & OLDER IM ONE (09:00)
[2019-12-30] MEDS ORDERED: DIGOXIN 0.125 MG TAB PO SCH (09:00)
[2019-12-30] MEDS ORDERED: METOPROLOL TART 25 MG TABLET PO SCH (09:00)
[2019-12-30] MEDS ORDERED: CALCIUM/VITAMIN D 500 MG TAB PO SCH (09:00)
[2019-12-30 09:03] VITALS: BP 158/82
[2019-12-30] MEDS: OMEPRAZOLE 20 MG CAP PO SCH (09:03)
[2019-12-30] MEDS: APIXABAN 5 MG TAB (ELIQUIS) PO SCH (09:03)
[2019-12-30] MEDS: DOCUSATE SODIUM 100 MG CAP PO SCH (09:04)
[2019-12-30 12:00] VITALS: BP 139/0
== END 2019-12-30 13:46 ==
LOC: M ED 10:54 → M ED INP 13:50 → INTOOBSV 13:50 → ENRESERV 14:14 → M PCU 16:16
PROVIDERS: ADMIT General Practice; ATTEND General Practice
DX: I48.0 Paroxysmal atrial fibrillation (principal); R00.0 Tachycardia, unspecified; I11.0 Hypertensive heart disease with heart failure; E11.9 Type 2 diabetes mellitus without complications; E78.5 Hyperlipidemia, unspecified; E66.9 Obesity, unspecified; Z85.3 Personal history of malignant neoplasm of breast; Z90.12 Acquired absence of left breast and nipple; I45.19 Other right bundle-branch block; K21.9 Gastro-esophageal reflux disease without esophagitis; I50.30 Unspecified diastolic (congestive) heart failure; I34.0 Nonrheumatic mitral (valve) insufficiency; M85.80 Other specified disorders of bone density and structure, unspecified site; Z79.01 Long term (current) use of anticoagulants; Z79.899 Other long term (current) drug therapy; Z88.8 Allergy status to other drugs, medicaments and biological substances
CPT/HCPCS: 36415; 71045; 80048; 80053; 80162; 82550; 82553; 83735; 84439; 84443; 84484; 85027; 85610; 85730; 90670; 90682; 93005; 93041; 94760; 96361; 96374; 97161; 99285; G0008; G0009; G0378; J1160; J3475; U0002

== ENCOUNTER → 2019-12-29 | Outpatient (REF) | payer MEDICARE, MEDICAID ==
[2019-12-29 10:40] LABS: HEMATOCRIT 46.9 % (36.0-47.0); HEMOGLOBIN 15.4 g/dl (12.0-15.5); MEAN CORPUSCULAR HEMOGLOBIN 29.9 pg (27.0-33.0); MEAN CORPUSCULAR HGB CONC 32.8 g/dl (32.0-36.5); MEAN CORPUSCULAR VOLUME 91.1 fl (80.0-96.0); PLATELET COUNT, AUTOMATED 259 10^3/uL (150-450); RED BLOOD COUNT 5.15 10^6/uL (4.00-5.40); WHITE BLOOD COUNT 11.1 10^3/uL (4.0-10.0)
[2019-12-29 10:59] LABS: ALBUMIN 3.3 GM/DL (3.2-5.2); BILIRUBIN,TOTAL 0.4 MG/DL (0.2-1.0); CALCIUM LEVEL 9.8 MG/DL (8.8-10.2); GLOMERULAR FILTRATION RATE 56.4 (>32); POTASSIUM SERUM 4.3 MEQ/L (3.5-5.1); TOTAL PROTEIN 7.3 GM/DL (6.4-8.2)
== END ==
LOC: M RAD 09:29 → SKLAB4 09:29
DX: R00.0 Tachycardia, unspecified (principal)

== ENCOUNTER → 2020-01-30 | Outpatient (CLI) | payer MEDICARE, MEDICAID ==
--- NOTE | 2020-02-03 12:28 | ECHO ---
DATE OF PROCEDURE: 01/30/2020 Age: 84 Gender: Female Height: 152 cm Weight: 72 kg REFERRING PHYSICIAN Nhung Delgado D.O. INDICATION: Atrial fibrillation. MEASUREMENTS: IVS 0.8 cm LV 5.1 cm LVPW 1.1 cm LA 3.9 cm Aorta 2.7 cm RV 2.8 1.2. Mitral E wave velocity 76 Mitral A wave 39 E prime septal 5.3 E prime lateral 9.5 Left atrial volume index 28 FINDINGS: This study is of acceptable technical quality. Patient is in sinus bradycardia with ventricular rate in the 50s. Left ventricle has normal size and systolic function with estimated ejection fraction (EF) approximately 60%. No segmental wall motion abnormalities are appreciated. Right ventricle also appears normal. Left atrium is mildly enlarged. The right atrium is normal size. The aortic valve is sclerotic, but otherwise has normal mobility. There are degenerative abnormalities of the mitral valve with prominent thickening of the anterior mitral leaflet. Mobility of the leaflet is preserved. Tricuspid and pulmonic valves appear normal. Small noncompressive pericardial effusion is noted. Inferior vena cava is normal size and appropriately collapses with inspiration indicative of normal central venous pressure. Aortic root is normal. Aortic arch and abdominal aorta were not well visualized. Doppler interrogation revealed no aortic stenosis and trace insufficiency. There is mild mitral insufficiency and mild tricuspid insufficiency. Calculated pulmonary artery pressure is within normal limits. Trace pulmonic insufficiency is also noted. Doppler interrogation of mitral inflow pattern and tissue Doppler imaging of the mitral annulus revealed normal diastolic function for patients age. CONCLUSIONS: 1. The patient is in sinus rhythm. 2. Normal left ventricular (LV) size with normal left ventricular (LV) systolic function and preserved diastolic function for patients age. 3. Aortic sclerosis with no stenosis and trace insufficiency. 4. Degenerative abnormalities in the anterior mitral leaflet, but functionally no stenosis and mild insufficiency. 5. Normal central venous pressure and normal pulmonary artery pressure. 6. Mild left atrial enlargement. 7. Small noncompressive pericardial effusion. MTDD
== END ==
LOC: M CARPUL 08:05
DX: I48.91 Unspecified atrial fibrillation (principal)

== ENCOUNTER → 2020-02-06 | Outpatient (REF) | payer MEDICAID, MEDICARE | LOC: SKLAB4 11:59 | DX: Z20.828 Contact with and (suspected) exposure to other viral communicable diseases (principal) ==

== ENCOUNTER → 2020-02-12 | Outpatient (REF) | payer MEDICARE, MEDICAID, OTHER | LOC: SKLAB4 02-11 11:40 → EDSTATUS 03-11 13:39 | PROVIDERS: ATTEND Internal Medicine | DX: Z20.828 Contact with and (suspected) exposure to other viral communicable diseases (principal) ==

== ENCOUNTER → 2020-02-19 | Outpatient (REF) | payer MEDICARE, MEDICAID, OTHER | LOC: SKLAB4 08:00 | PROVIDERS: ATTEND Internal Medicine | DX: Z20.828 Contact with and (suspected) exposure to other viral communicable diseases (principal) ==

== ENCOUNTER → 2020-02-26 | Outpatient (REF) | payer MEDICARE, MEDICAID, OTHER | LOC: SKLAB4 12:31 | DX: Z53.9 Procedure and treatment not carried out, unspecified reason (principal) ==

== ENCOUNTER → 2020-02-26 | Outpatient (REF) | payer MEDICARE, MEDICAID, OTHER ==
[2020-02-26 18:51] LABS: INFLUENZA A AMPLIFICATION NEGATIVE (NEGATIVE); INFLUENZA B AMPLIFICATION NEGATIVE (NEGATIVE)
== END ==
LOC: SKLAB4 08:00
PROVIDERS: ATTEND Internal Medicine
DX: Z20.828 Contact with and (suspected) exposure to other viral communicable diseases (principal)
CPT/HCPCS: 87502; U0003

== ENCOUNTER → 2020-03-04 | Outpatient (REF) | payer MEDICARE, MEDICAID, OTHER | LOC: SKLAB4 07:54 | DX: Z20.828 Contact with and (suspected) exposure to other viral communicable diseases (principal) ==

== ENCOUNTER → 2020-03-11 | Outpatient (REF) | payer MEDICARE, MEDICAID, OTHER | LOC: SKLAB4 08:44 | DX: Z20.828 Contact with and (suspected) exposure to other viral communicable diseases (principal) ==

== ENCOUNTER → 2020-03-17 | Outpatient (REF) | payer MEDICARE, MEDICAID, OTHER ==
[2020-03-17 12:13] LABS: CHOLESTEROL LEVEL 215 MG/DL (<200); CHOLESTEROL RISK RATIO 6.142 (<5); HDL CHOLESTEROL 35 MG/DL (>40); NON-HDL-C 180 MG/DL; TRIGLYCERIDES LEVEL 471 MG/DL (<150)
[2020-03-17 13:13] LABS: HEMOGLOBIN A1c 5.7 %
== END ==
LOC: SKLAB4 10:55
DX: E78.5 Hyperlipidemia, unspecified (principal); E11.9 Type 2 diabetes mellitus without complications; E03.9 Hypothyroidism, unspecified

== ENCOUNTER → 2020-03-18 | Outpatient (REF) | payer MEDICARE, MEDICAID, OTHER | LOC: SKLAB4 06:37 | DX: Z20.828 Contact with and (suspected) exposure to other viral communicable diseases (principal) ==

== ENCOUNTER → 2020-03-23 | Outpatient (REF) | payer MEDICAID, MEDICARE, OTHER ==
--- NOTE | 2020-03-24 06:06 | ECGEPIP ---
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
== END ==
LOC: SKLAB4 13:10
DX: I48.92 Unspecified atrial flutter (principal)

== ENCOUNTER → 2020-03-25 | Outpatient (REF) | payer MEDICARE, MEDICAID | LOC: SKLAB4 06:19 | DX: Z20.828 Contact with and (suspected) exposure to other viral communicable diseases (principal) ==

== ENCOUNTER → 2020-04-01 | Outpatient (REF) | payer MEDICARE, MEDICAID | LOC: SKLAB4 06:29 | DX: Z11.52 Encounter for screening for COVID-19 (principal) ==

== ENCOUNTER → 2020-04-08 | Outpatient (REF) | payer MEDICARE, MEDICAID | LOC: SKLAB4 06:28 | PROVIDERS: ATTEND Internal Medicine | DX: Z20.822 Contact with and (suspected) exposure to COVID-19 (principal) ==

== ENCOUNTER → 2020-04-15 | Outpatient (REF) | payer MEDICARE, MEDICAID | LOC: SKLAB4 07:01 | PROVIDERS: ATTEND Internal Medicine | DX: Z20.822 Contact with and (suspected) exposure to COVID-19 (principal) ==

== ENCOUNTER → 2020-04-22 | Outpatient (REF) | payer MEDICARE, MEDICAID | LOC: SKLAB4 06:33 | PROVIDERS: ATTEND Internal Medicine | DX: Z20.822 Contact with and (suspected) exposure to COVID-19 (principal) ==

== ENCOUNTER → 2020-04-29 | Outpatient (REF) | payer MEDICARE, MEDICAID | LOC: SKLAB4 07:09 | PROVIDERS: ATTEND Internal Medicine | DX: Z11.52 Encounter for screening for COVID-19 (principal) ==

== ENCOUNTER → 2020-05-06 | Outpatient (REF) | payer MEDICARE, MEDICAID | LOC: SKLAB4 06:54 | PROVIDERS: ATTEND Internal Medicine | DX: Z20.822 Contact with and (suspected) exposure to COVID-19 (principal) ==

== ENCOUNTER → 2020-05-13 | Outpatient (REF) | payer MEDICARE, MEDICAID, OTHER | LOC: SKLAB4 06:23 | PROVIDERS: ATTEND Internal Medicine | DX: Z20.822 Contact with and (suspected) exposure to COVID-19 (principal) ==

== ENCOUNTER → 2020-05-20 | Outpatient (REF) | payer MEDICARE, MEDICAID, OTHER | LOC: SKLAB4 07:04 | PROVIDERS: ATTEND Internal Medicine | DX: Z20.822 Contact with and (suspected) exposure to COVID-19 (principal) ==

== ENCOUNTER → 2020-06-03 | Outpatient (REF) | payer MEDICARE, MEDICAID, OTHER | LOC: SKLAB4 07:03 | PROVIDERS: ATTEND Internal Medicine | DX: Z20.822 Contact with and (suspected) exposure to COVID-19 (principal) ==

== ENCOUNTER → 2020-06-09 | Outpatient (REF) | payer MEDICARE, MEDICAID, OTHER ==
[2020-06-09 08:46] LABS: BLOOD UREA NITROGEN 21 MG/DL (7-18); CALCIUM LEVEL 8.8 MG/DL (8.8-10.2); CARBON DIOXIDE LEVEL 31 MEQ/L (21-32); CHLORIDE LEVEL 106 MEQ/L (98-107); GLOMERULAR FILTRATION RATE > 60.0 (>32); GLUCOSE, FASTING 85 MG/DL (70-100); POTASSIUM SERUM 4.1 MEQ/L (3.5-5.1); SODIUM LEVEL 142 MEQ/L (136-145)
== END ==
LOC: SKLAB4 10:13
DX: I50.9 Heart failure, unspecified (principal)

== ENCOUNTER → 2020-06-10 | Outpatient (REF) | payer MEDICARE, MEDICAID, OTHER | LOC: SKLAB4 07:05 | PROVIDERS: ATTEND Internal Medicine | DX: Z20.822 Contact with and (suspected) exposure to COVID-19 (principal) ==

== ENCOUNTER → 2020-06-26 | Outpatient (REF) | payer MEDICARE, MEDICAID, OTHER | LOC: SKLAB4 06:24 | PROVIDERS: ATTEND Internal Medicine | DX: Z20.822 Contact with and (suspected) exposure to COVID-19 (principal) ==

== ENCOUNTER → 2020-07-30 | Outpatient (REF) | payer MEDICARE, MEDICAID, OTHER ==
[~2020-07-30] MED LIST changes: +MILK400S12 PO; -MILKSUS21 PO
== END ==
LOC: SKLAB4 09:47
DX: E83.42 Hypomagnesemia (principal)

== ENCOUNTER → 2020-08-21 | Outpatient (REF) | payer MEDICARE, MEDICAID, OTHER ==
[2020-08-21 09:49] LABS: HEMATOCRIT 39.3 % (36.0-47.0); MEAN CORPUSCULAR HEMOGLOBIN 30.9 pg (27.0-33.0); MEAN CORPUSCULAR HGB CONC 33.1 g/dl (32.0-36.5); MEAN CORPUSCULAR VOLUME 93.3 fl (80.0-96.0); PLATELET COUNT, AUTOMATED 187 10^3/uL (150-450); RED BLOOD COUNT 4.21 10^6/uL (4.00-5.40); WHITE BLOOD COUNT 6.1 10^3/uL (4.0-10.0)
== END ==
LOC: SKLAB4 07:08
DX: R23.1 Pallor (principal)

== ENCOUNTER → 2020-09-15 | Outpatient (REF) | payer MEDICARE, MEDICAID, OTHER | LOC: SKLAB4 13:53 | DX: E03.9 Hypothyroidism, unspecified (principal); E11.9 Type 2 diabetes mellitus without complications ==

== ENCOUNTER → 2020-11-19 | Outpatient (REF) | payer MEDICARE, MEDICAID, OTHER | LOC: SKLAB4 14:14 | PROVIDERS: ATTEND Neuromusculoskeletal Medicine & OMM | DX: E55.9 Vitamin D deficiency, unspecified (principal); Z79.899 Other long term (current) drug therapy ==

== ENCOUNTER → 2020-12-15 | Outpatient (REF) | payer MEDICARE, MEDICAID, OTHER ==
[2020-12-15 09:48] LABS: BLOOD UREA NITROGEN 26 MG/DL (7-18); CALCIUM LEVEL 9.6 MG/DL (8.8-10.2); CARBON DIOXIDE LEVEL 29 MEQ/L (21-32); CHLORIDE LEVEL 107 MEQ/L (98-107); GLOMERULAR FILTRATION RATE > 60.0 (>32); GLUCOSE, FASTING 126 MG/DL (70-100); POTASSIUM SERUM 4.2 MEQ/L (3.5-5.1); SODIUM LEVEL 144 MEQ/L (136-145)
== END ==
LOC: SKLAB4 06:44
PROVIDERS: ATTEND Neuromusculoskeletal Medicine & OMM
DX: N18.9 Chronic kidney disease, unspecified (principal)

== ENCOUNTER → 2021-01-09 | Outpatient (REF) | payer MEDICARE, MEDICAID, OTHER | LOC: SKLAB4 06:54 | PROVIDERS: ATTEND Neuromusculoskeletal Medicine & OMM | DX: Z20.822 Contact with and (suspected) exposure to COVID-19 (principal) ==

== ENCOUNTER → 2021-01-11 | Outpatient (REF) | payer MEDICARE, MEDICAID ==
[2021-01-11 22:05] LABS: HEMATOCRIT 40.6 % (36.0-47.0); HEMOGLOBIN 13.5 g/dl (12.0-15.5); MEAN CORPUSCULAR HEMOGLOBIN 30.1 pg (27.0-33.0); MEAN CORPUSCULAR HGB CONC 33.3 g/dl (32.0-36.5); MEAN CORPUSCULAR VOLUME 90.6 fl (80.0-96.0); PLATELET COUNT, AUTOMATED 188 10^3/uL (150-450); RED BLOOD COUNT 4.48 10^6/uL (4.00-5.40); WHITE BLOOD COUNT 4.3 10^3/uL (4.0-10.0)
[2021-01-11 22:34] LABS: ALBUMIN 2.8 GM/DL (3.2-5.2); BILIRUBIN,TOTAL 0.3 MG/DL (0.2-1.0); CALCIUM LEVEL 8.6 MG/DL (8.8-10.2); GLOMERULAR FILTRATION RATE 56.2 (>32); POTASSIUM SERUM 3.9 MEQ/L (3.5-5.1); TOTAL PROTEIN 6.4 GM/DL (6.4-8.2)
== END ==
LOC: SKLAB4 21:37
PROVIDERS: ATTEND Neuromusculoskeletal Medicine & OMM
DX: R10.9 Unspecified abdominal pain (principal); R11.0 Nausea

== ENCOUNTER → 2021-01-12 | Outpatient (REF) | payer MEDICARE, MEDICAID | LOC: SKLAB4 11:54 | PROVIDERS: ATTEND Neuromusculoskeletal Medicine & OMM | DX: Z20.822 Contact with and (suspected) exposure to COVID-19 (principal) ==

== ENCOUNTER → 2021-01-14 | Outpatient (REF) | payer MEDICARE, MEDICAID ==
[2021-01-14 13:02] LABS: HEMATOCRIT 43.7 % (36.0-47.0); HEMOGLOBIN 14.6 g/dl (12.0-15.5); MEAN CORPUSCULAR HEMOGLOBIN 30.2 pg (27.0-33.0); MEAN CORPUSCULAR HGB CONC 33.4 g/dl (32.0-36.5); MEAN CORPUSCULAR VOLUME 90.5 fl (80.0-96.0); PLATELET COUNT, AUTOMATED 156 10^3/uL (150-450); RED BLOOD COUNT 4.83 10^6/uL (4.00-5.40); WHITE BLOOD COUNT 3.6 10^3/uL (4.0-10.0)
[2021-01-14 13:42] LABS: ALBUMIN 2.9 GM/DL (3.2-5.2); ALT/SGPT 68 U/L (12-78); BILIRUBIN,TOTAL 0.4 MG/DL (0.2-1.0); BLOOD UREA NITROGEN 18 MG/DL (7-18); CALCIUM LEVEL 8.3 MG/DL (8.8-10.2); CARBON DIOXIDE LEVEL 27 MEQ/L (21-32); CHLORIDE LEVEL 102 MEQ/L (98-107); GLOMERULAR FILTRATION RATE > 60.0 (>32); GLUCOSE, FASTING 89 MG/DL (70-100); POTASSIUM SERUM 3.6 MEQ/L (3.5-5.1); SODIUM LEVEL 137 MEQ/L (136-145); TOTAL PROTEIN 6.4 GM/DL (6.4-8.2)
== END ==
LOC: SKLAB2 07:00
PROVIDERS: ATTEND Neuromusculoskeletal Medicine & OMM
DX: U07.1 COVID-19 (principal); Z79.899 Other long term (current) drug therapy

== ENCOUNTER → 2021-01-15 | Outpatient (REF) | payer MEDICAID, MEDICARE ==
[~2021-01-15] MED LIST changes: +ACETAMINOPHEN TAB 650MG DOSE (2X325MG) PO ONE; +ALBUTEROL 90 MCG/ACT 8GM HFA INHALER INH PRN; +ALBUTEROL SULFATE 2.5 MG/0.5 ML INH NEB SOLN INH PRN; +BAMLANIVIMAB 700 MG, ETESEVIMAB 1,400 MG in NS 250 ML IV ONE; +EPINEPHrine INJ 1 MG/ML 1ML AMP IM PRN; +NS 1,000 ML IV SCH; +diphenhydrAMINE 50MG/ML VIAL (J1200) IV ONE; +diphenhydrAMINE 50MG/ML VIAL (J1200) IV PRN; +methylPREDNISolone 125MG 2ML VIAL IV ONE; +methylPREDNISolone 125MG 2ML VIAL IV PRN
== END ==
LOC: SKLAB2 11:02
PROVIDERS: ATTEND Neuromusculoskeletal Medicine & OMM
DX: U07.1 COVID-19 (principal)

== ENCOUNTER → 2021-01-18 | Outpatient (REF) | payer MEDICARE, MEDICAID ==
[~2021-01-18] MED LIST changes: -ACETAMINOPHEN TAB 650MG DOSE (2X325MG) PO ONE; -ALBUTEROL 90 MCG/ACT 8GM HFA INHALER INH PRN; -ALBUTEROL SULFATE 2.5 MG/0.5 ML INH NEB SOLN INH PRN; -BAMLANIVIMAB 700 MG, ETESEVIMAB 1,400 MG in NS 250 ML IV ONE; -EPINEPHrine INJ 1 MG/ML 1ML AMP IM PRN; -NS 1,000 ML IV SCH; -diphenhydrAMINE 50MG/ML VIAL (J1200) IV ONE; -diphenhydrAMINE 50MG/ML VIAL (J1200) IV PRN; -methylPREDNISolone 125MG 2ML VIAL IV ONE; -methylPREDNISolone 125MG 2ML VIAL IV PRN
[2021-01-18 13:06] LABS: HEMATOCRIT 41.5 % (36.0-47.0); MEAN CORPUSCULAR HEMOGLOBIN 30.4 pg (27.0-33.0); MEAN CORPUSCULAR HGB CONC 33.7 g/dl (32.0-36.5); PLATELET COUNT, AUTOMATED 198 10^3/uL (150-450); RED BLOOD COUNT 4.61 10^6/uL (4.00-5.40); WHITE BLOOD COUNT 4.2 10^3/uL (4.0-10.0)
[2021-01-18 14:07] LABS: ALBUMIN 2.5 GM/DL (3.2-5.2); ALT/SGPT 48 U/L (12-78); BILIRUBIN,TOTAL 0.4 MG/DL (0.2-1.0); BLOOD UREA NITROGEN 31 MG/DL (7-18); CARBON DIOXIDE LEVEL 27 MEQ/L (21-32); CHLORIDE LEVEL 108 MEQ/L (98-107); CREATININE FOR GFR 0.76 MG/DL (0.55-1.30); GLOMERULAR FILTRATION RATE > 60.0 (>32); GLUCOSE, FASTING 124 MG/DL (70-100); POTASSIUM SERUM 3.8 MEQ/L (3.5-5.1); SODIUM LEVEL 142 MEQ/L (136-145); TOTAL PROTEIN 5.6 GM/DL (6.4-8.2)
== END ==
LOC: SKLAB2 10:00
PROVIDERS: ATTEND Neuromusculoskeletal Medicine & OMM
DX: U07.1 COVID-19 (principal); Z79.899 Other long term (current) drug therapy

== ENCOUNTER → 2021-01-20 | Outpatient (REF) | payer MEDICARE, MEDICAID ==
[2021-01-20 11:03] LABS: HEMATOCRIT 43.8 % (36.0-47.0); HEMOGLOBIN 14.6 g/dl (12.0-15.5); MEAN CORPUSCULAR HGB CONC 33.3 g/dl (32.0-36.5); MEAN CORPUSCULAR VOLUME 90.1 fl (80.0-96.0); PLATELET COUNT, AUTOMATED 226 10^3/uL (150-450); RED BLOOD COUNT 4.86 10^6/uL (4.00-5.40); WHITE BLOOD COUNT 6.3 10^3/uL (4.0-10.0)
[2021-01-20 11:28] LABS: ALBUMIN 2.6 GM/DL (3.2-5.2); ALT/SGPT 66 U/L (12-78); BILIRUBIN,TOTAL 0.6 MG/DL (0.2-1.0); BLOOD UREA NITROGEN 34 MG/DL (7-18); CALCIUM LEVEL 8.6 MG/DL (8.8-10.2); CARBON DIOXIDE LEVEL 29 MEQ/L (21-32); CHLORIDE LEVEL 108 MEQ/L (98-107); CREATININE FOR GFR 0.79 MG/DL (0.55-1.30); GLOMERULAR FILTRATION RATE > 60.0 (>32); GLUCOSE, FASTING 138 MG/DL (70-100); POTASSIUM SERUM 3.7 MEQ/L (3.5-5.1); SODIUM LEVEL 142 MEQ/L (136-145)
== END ==
LOC: SKLAB2 07:00
PROVIDERS: ATTEND Neuromusculoskeletal Medicine & OMM
DX: U07.1 COVID-19 (principal); Z79.899 Other long term (current) drug therapy

== ENCOUNTER → 2021-01-22 | Outpatient (REF) | payer MEDICARE, MEDICAID | LOC: SKLAB2 07:00 | PROVIDERS: ATTEND Neuromusculoskeletal Medicine & OMM | DX: U07.1 COVID-19 (principal); Z53.9 Procedure and treatment not carried out, unspecified reason ==

== ENCOUNTER 2021-03-15 14:24 | Inpatient (IN) | payer MEDICARE, MEDICAID ==
[~2021-03-15] VITALS: Ht 152.4 cm; Wt 71.2 kg
[~2021-03-15 14:24] MED LIST changes: -ATOR40TA75 PO; -CALCCAP4 PO; -FLUO1TAB3 PO; -PANT40TA29 PO; -SENO8.6T5 PO
[2021-03-15] MEDS ORDERED: FLUO1TAB3 PO (15:03)
[2021-03-15] MEDS ORDERED: SENO8.6T5 PO (15:03)
[2021-03-15] MEDS ORDERED: ATOR40TA75 PO (15:03)
[2021-03-15] MEDS ORDERED: CALCCAP4 PO (15:03)
[2021-03-15] MEDS ORDERED: ELIQ5TAB PO (15:03)
[2021-03-15] MEDS ORDERED: HOME MED LIST COMPLETE! XX SCH (15:05)
--- NOTE | 2021-03-15 15:13 | REP ---
INDICATION: abdominal pain COMPARISON: 12/29/2019 TECHNIQUE: Portable AP view of the chest FINDINGS: The mediastinum and cardiac silhouette are stable and within normal limits for portable technique. The lung schmidt are clear without acute consolidation, effusion, or pneumothorax. Skeletal structures are intact. IMPRESSION: No acute cardiopulmonary process appreciated. <Electronically signed by Pepe Tovar > 03/15/21 [id number]
[2021-03-15 15:37] LABS: BASO % 0.2 % (0.0-1.0); EOS % 0.1 % (0.0-3.0); LYMPH # 1.1 10^3/uL (1.5-5.0); LYMPH % 12.5 % (24.0-44.0); MEAN CORPUSCULAR HEMOGLOBIN 29.7 pg (27.0-33.0); MEAN CORPUSCULAR HGB CONC 32.7 g/dl (32.0-36.5); MEAN CORPUSCULAR VOLUME 90.9 fl (80.0-96.0); MONO # 0.5 10^3/uL (0.0-0.8); NEUTROPHILS # 6.8 10^3/uL (1.5-8.5); PLATELET COUNT, AUTOMATED 264 10^3/uL (150-450); RED BLOOD COUNT 5.39 10^6/uL (4.00-5.40); WHITE BLOOD COUNT 8.4 10^3/uL (4.0-10.0)
[2021-03-15 15:59] LABS: ALBUMIN 3.2 GM/DL (3.2-5.2); ALT/SGPT 37 U/L (12-78); BILIRUBIN,DIRECT 0.1 MG/DL (0.0-0.2); BILIRUBIN,TOTAL 0.7 MG/DL (0.2-1.0); BLOOD UREA NITROGEN 14 MG/DL (7-18); CALCIUM LEVEL 9.5 MG/DL (8.8-10.2); CARBON DIOXIDE LEVEL 28 MEQ/L (21-32); CHLORIDE LEVEL 107 MEQ/L (98-107); CREATININE FOR GFR 0.84 MG/DL (0.55-1.30); GLOMERULAR FILTRATION RATE > 60.0 (>32); GLUCOSE, FASTING 116 MG/DL (70-100); LIPASE 87 U/L (73-393); POTASSIUM SERUM 5.6 MEQ/L (3.5-5.1); SODIUM LEVEL 140 MEQ/L (136-145); TOTAL PROTEIN 6.4 GM/DL (6.4-8.2)
[2021-03-15] MEDS ORDERED: ISOVUE-370 76% 100ML VIAL As Ordered ONE (16:31)
--- NOTE | 2021-03-15 17:08 | REP ---
INDICATION: Abdominal pain, shortness of breath COMPARISON: None. TECHNIQUE: CT angiography of the chest after the intravenous administration of 75 cc Isovue 370. FINDINGS: There is excellent visualization of the pulmonary arterial vasculature. There are no focal filling defects present that would be considered consistent with acute pulmonary emboli. Limited evaluation of the thoracic aorta shows no gross abnormality. There are no pleural or pericardial effusions. The imaged upper abdomen shows cholelithiasis. The imaged osseous structures are within normal limits. Evaluation of the lung schmidt shows multiple pulmonary nodules in the right lower lobe most of which are partially obscured by motion artifact and the largest of which measures 6 mm. There are scattered calcified granulomas. There is a subtle patchy right upper and right lower lobe airspace opacity. IMPRESSION: 1. There is no evidence of a pulmonary embolism. 2. Subsegmental atelectatic changes versus developing pneumonia in the right upper lower lobes. 3. Multiple lung nodules as described above. Three-month follow-up is recommended. 4. Cholelithiasis 5. Other findings as described above. <Electronically signed by Damion Davis > 03/15/21 [id number]
--- NOTE | 2021-03-15 17:20 | REP ---
INDICATION: Abdominal pain, shortness of breath. COMPARISON: None TECHNIQUE: Axial contrast-enhanced images from the lung bases to the pubic symphysis using 100 cc Isovue 370 intravenous contrast material. Coronal and sagittal reformations obtained. This CT examination was performed using the following dose reduction techniques: Automated exposure control, adjustment of mA and/or kv according to the patient's size, and the use of iterative reconstruction technique. FINDINGS: Evaluation is severely limited due to significant motion artifact through the abdomen and pelvis. Liver, spleen areas, bilateral adrenal glands and kidneys are incompletely evaluated but grossly within normal limits. Cholelithiasis noted without acute cholecystitis. The enteric system is without obstruction or obvious acute process no obvious free air. Pelvis demonstrates normal bladder and age-appropriate uterus/adnexa No ascites. No free air. No intraperitoneal or retroperitoneal adenopathy. Abdominal aorta and vasculature appear normal. Musculoskeletal structures are intact and without acute osseous abnormality. IMPRESSION: Severely limited and nearly nondiagnostic due to extensive motion artifact. No obvious acute process. <Electronically signed by Pepe Tovar > 03/15/21 [id number]
[2021-03-15] MEDS ORDERED: NS 500 ML IV ONE (17:50)
[2021-03-15] MEDS ORDERED: cefTRIAXone SOD 2 GM in D5W MINI-BAG PLUS 50 ML IV ONE (18:15)
--- NOTE | 2021-03-15 19:15 | ECGEPIP ---
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
--- NOTE | 2021-03-15 19:17 | ECGEPIP ---
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
[2021-03-15 23:33] LABS: RSV AMPLIFICATION NEGATIVE (NEGATIVE)
--- NOTE | 2021-03-15 23:46 | HPEPDOC ---
General Date of Admission Mar 15, 2021 at 23:36 Date of Service: Mar 15, 2021 Attending Physician: ARIANE MIRAMONTES MD Chief Complaint The patient is a 85-year-old female admitted with a reason for visit of Chest Pain,Constipation. History of Present Illness CHIEF COMPLAINT: CHEST PAIN, constipation HISTORY OF PRESENT ILLNESS: This is a 85-year-old elderly female who lives at [facility] who presents to the ER with chief complaint of chest pain and constipation. She states it started today. She's AAOx2. In the ER her EKG showed sinus tachycardia with left axis deviation right bundle branch block and decreased rate. Her troponins were trended 3 times with a slight increase that has leveled off. I was unable to obtain much history from the patient herself other than that she has some epigastric pain that feels to her like bad acid reflux. She states that it is constant and has been getting worse in the past day. She does not remember the last time she had a bowel movement. But she denies any blood in her BMs. She denies being short of breath or having noticed any lower extremity edema that deviates for her baseline. She also denies any syncopal episodes, dizziness, headache or loss of consciousness. I have tried calling her daugther [phone] and she states that she's only aware that her heart rate was "fast" and [facility] called the ER to further assess. PAST MEDICAL/SURGICAL HISTORY: Allergic rhinitis Chronic right bundle branch block Obesity GERD. Paroxysmal A. fib on anticoagulation History of diabetes currently not on any medications for same. Personality disorder. Bipolar disorder Hypothyroidism Actinic keratosis on face Hyperlipidemia. Hypertension. Osteoporosis with previous fracture. 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 Diastolic dysfunction. History of borderline pulmonary hypertension. Peripheral neuropathy Onychomycosis History of breast cancer; left mastectomy in 2012. History of left distal radial fracture SOCIAL HISTORY: [facility] lives in the shelter. No EtOH, tobacco or illicit drug use. FAMILY HISTORY: Mother and father . Noncontributory due to age. REVIEW OF SYSTEMS: Unable to obtain due to mentation and baseline dementia. PHYSICAL EXAM: VS: SEE BELOW GENERAL: The patient is a well-developed, well-nourished in no apparent distress. AAOx2 NEURO: No focal neurological deficits HEENT: Head is normocephalic and atraumatic. Extraocular muscles are intact. Pupils are equal, round, and reactive to light and accommodation. Nares appears normal. Moist mucous membranes. PULM: Clear to auscultation bilaterally. No wheezing, rhonchi or rales appreciated. CARDIO: Normal S1, S2. Tachycardic. No significant murmurs, gallops, rubs or clicks. No signs of peripheral edema ABDOMEN: Soft, obese nontender, and nondistended. Normal bowel sounds. Unable to appreciate organomegaly secondary to obese body habitus. EXTREMITIES: No cyanosis, clubbing, rash, lesions. IMAGING: Chest radiograph impression: No acute cardiopulmonary process. Abdominal/pelvis CT impression: Severely limited and nearly nondiagnostic due to extensive motion artifact. No obvious acute process. CT angio chest impression: 1. There is no evidence of a pulmonary embolism. 2. Subsegmental atelectatic changes versus developing pneumonia in the right upper lower lobes. 3. Multiple lung nodules as described above. Three-month follow-up is recommended. 4. Cholelithiasis See full report from radiology/imaging Last echo was performed in January 2020 Normal left ventricular size with normal left ventricular systolic function and grade 2 diastolic dysfunction. Degenerative abnormalities in the anterior mitr al leaflet. Normal central venous pressure normal pulmonary artery pressure. Mild left atrial enlargement. EKG 1438 sinus tachycardia with left axis deviation and right bundle branch block. Decreased rate EKG 1828 sinus tachycardia with right bundle branch block left anterior fascicular block minimal voltage criteria for LVH may be normal variant (right in aVL). Decreased rate IMPRESSION AND PLAN: 1. Chest pain. Will place on tele. This is likely to be type 2 MS. Her bp in the ER room when i saw her was SBP 172. We will order a high sensitivity trop at 0h and in 3h with corresponding EKGs. His Troponin x3 in the ER were trended and has leveled out. Titrate oxygen to oxygen above 92%. Continue on 2 g sodium diet. Zofran 4 mg IV every 6 as needed for nausea. Tylenol 650 p.o. every 6 hours for pain and/or fever. will obtain orthostats 2. [address]ipation. [address] on bowel regimen. have placed nursing order to contact MD within 12 hours if patient has not had a good BM. Next step will be enema and manual disimpaction will be last resort. 3. Paroxsymal A. fib. Currently in sinus. rate in the 80s-90s. When she's worked up in the ER, it jumps to 120s. c/w eliquis for AC. 4. GERD. will place on protonix 5. Hypothyroidism. Continue Synthroid 6. Obesity. Complicating medical care DVT prophylaxis. Eliquis CODE STATUS: She does have a MOST form and affect. She does have CPR ordered and limited medical interventions with a trial period of intubation. She does have a healthcare proxy. I have personally reviewed her MOST form today Home Medications Scheduled Apixaban (Eliquis) 5 Mg Tablet, 5 MG PO BID, (Reported) Atorvastatin Calcium (Atorvastatin Calcium) 40 Mg Tablet, 40 MG PO DAILY, (Reported) Calcium Carbonate/Vitamin D3 (Calcium 600 + Vit D 400 Softgl) 1 Each Capsule, 1 CAP PO DAILY, (Reported) Fluoxetine HCl (Fluoxetine HCl) 20 Mg Tablet, 10 MG PO DAILY, (Reported) Levothyroxine Sodium (Synthroid) 75 Mcg Tablet, 75 MCG PO DAILY, (Reported) Sennosides (Senokot) 8.6 Mg Tablet, 17.2 MG PO DAILY, (Reported) Scheduled PRN Acetaminophen (Tylenol) 325 Mg Tablet, 650 MG PO Q4H PRN for PAIN, (Reported) Bisacodyl (Dulcolax) 10 Mg Supp.rect, 10 MG [place] DAILY PRN for CONSTIPATION, (Reported) Magnesium Hydroxide (Milk of Magnesia) 400 Mg/5 Ml Oral.susp, 30 ML PO DAILY PRN for CONSTIPATION, (Reported) Allergies Coded Allergies: lisinopril (Verified Allergy, Unknown, 12/29/19) GME ATTESTATION GME ATTESTATION My faculty preceptor for this patient encounter was physically present during the encounter and was fully available. All aspects of the patient interview, examination, medical decision making process, and medical care plan development were reviewed and approved by the faculty preceptor. The faculty preceptor is aware and concurs with the plan as stated in the body of this note and will attest to such by his/her cosignature. ATTENDING NOTE I, A Yousef, have independently examined this patient and performed my own physical exam, as well as reviewed the documentation and addend when necessary. I have discussed in detail with the resident / student the findings and plan of treatment as documented by the resident / student. I agree with their findings and treatment plan except for any changes as outlined below. Rule out ACS. Trend troponin. Patient currently chest pain-free. EKG reviewed. Arminda Natarajan DO Mar 15, 2021 23:46 ARIANE MIRAMONTES MD Mar 16, 2021 05:53
[2021-03-16] MEDS ORDERED: ACETAMINOPHEN TAB 650MG DOSE (2X325MG) PO PRN (00:30)
[2021-03-16] MEDS ORDERED: MOM 30ML SUSPENSION UDC PO PRN (00:30)
[2021-03-16] MEDS ORDERED: MAALOX 30 ML SUSP *UDC PO PRN (00:30)
[2021-03-16] MEDS ORDERED: NITROGLYCERIN 0.3 MG SUBL TAB SL PRN (00:45)
[2021-03-16] MEDS ORDERED: ONDANSETRON 4MG/2ML VIAL IV PRN (00:45)
[2021-03-16] MEDS ORDERED: MORPHINE 10 MG/ML 1ML VIAL (J2270) IV PRN (00:45)
[2021-03-16] MEDS ORDERED: BISACODYL 10 MG SUPP PR ONE (00:55)
[2021-03-16] MEDS ORDERED: MOM 30ML SUSPENSION UDC PO ONE (01:00)
[2021-03-16] MEDS ORDERED: PILL CUTTER 1 EACH XX ONE ×2 (01:10→08:37)
[2021-03-16] MEDS: APIXABAN 5 MG TAB (ELIQUIS) PO SCH ×3 (01:26→20:07)
[2021-03-16] MEDS ORDERED: LEVOTHYROXINE 75MCG TABLET (0.075MG) PO SCH (06:00)
[2021-03-16 07:59] LABS: CK-MB VALUE MASS 1.9 NG/ML (<3.6); MB/CK RELATIVE INDEX 7.92 (< OR =4)
[2021-03-16] MEDS ORDERED: ATORVASTATIN 20 MG TAB PO SCH (09:00)
[2021-03-16] MEDS: METOPROLOL TART 12.5 MG PER 1/2 TAB PO SCH ×2 (09:00→20:07)
[2021-03-16] MEDS ORDERED: FLUoxetine 10 MG CAP PO SCH (09:00)
[2021-03-16] MEDS: DOCUSATE SODIUM 100MG CAPSULE PO SCH ×2 (09:00→20:06)
[2021-03-16] MEDS ORDERED: GI COCKTAIL 50ML BTL(HYOSCYAMINE/MAALOX/LIDOCAINE VISCOUS)(1:3:1) PO PRN (10:00)
[2021-03-16 10:18] LABS: BASO % 0.4 % (0.0-1.0); EOS # 0.1 10^3/uL (0.0-0.5); EOS % 0.6 % (0.0-3.0); HEMATOCRIT 46.6 % (36.0-47.0); LYMPH # 2.2 10^3/uL (1.5-5.0); MEAN CORPUSCULAR HEMOGLOBIN 29.9 pg (27.0-33.0); MEAN CORPUSCULAR HGB CONC 32.2 g/dl (32.0-36.5); MONO # 0.7 10^3/uL (0.0-0.8); MONO % 8.4 % (2.0-8.0); NEUTROPHILS # 4.9 10^3/uL (1.5-8.5); NEUTROPHILS % 62.3 % (36.0-66.0); PLATELET COUNT, AUTOMATED 265 10^3/uL (150-450); RED BLOOD COUNT 5.01 10^6/uL (4.00-5.40); WHITE BLOOD COUNT 7.9 10^3/uL (4.0-10.0)
[2021-03-16 10:28] LABS: ALBUMIN 3.3 GM/DL (3.2-5.2); ALT/SGPT 31 U/L (12-78); BILIRUBIN,TOTAL 0.5 MG/DL (0.2-1.0); BLOOD UREA NITROGEN 16 MG/DL (7-18); CALCIUM LEVEL 9.7 MG/DL (8.8-10.2); CARBON DIOXIDE LEVEL 31 MEQ/L (21-32); CHLORIDE LEVEL 107 MEQ/L (98-107); CREATININE FOR GFR 0.66 MG/DL (0.55-1.30); GLOMERULAR FILTRATION RATE > 60.0 (>32); GLUCOSE, FASTING 105 MG/DL (70-100); MAGNESIUM LEVEL 1.9 MG/DL (1.8-2.4); POTASSIUM SERUM 3.7 MEQ/L (3.5-5.1); SODIUM LEVEL 145 MEQ/L (136-145); TOTAL PROTEIN 6.4 GM/DL (6.4-8.2)
[2021-03-16] MEDS ORDERED: METO1TAB87 PO (12:28)
[2021-03-16] MEDS ORDERED: PANT40TA29 PO (12:28)
--- NOTE | 2021-03-16 12:42 | DS.PDOC ---
Discharge Summary General Date of Admission Mar 15, 2021 at 23:36 Discharge Summary PROCEDURES PERFORMED DURING STAY: [None]. ADMITTING DIAGNOSES: Chest pain Constipation paroxysmal atrial fibrillation GERD hypothyroidism Obesity DISCHARGE DIAGNOSES: Chest pain Constipation paroxysmal atrial fibrillation GERD hypothyroidism Obesity COMPLICATIONS/CHIEF COMPLAINT: Chest Pain,Constipation. HISTORY OF PRESENT ILLNESS: obtained from HPI: HISTORY OF PRESENT ILLNESS: This is a 85-year-old elderly female who lives at [facility] who presents to the ER with chief complaint of chest pain and constipation. She states it started today. She's AAOx2. In the ER her EKG showed sinus tachycardia with left axis deviation right bundle branch block and decreased rate. Her troponins were trended 3 times with a slight increase that has leveled off. I was unable to obtain much history from the patient herself other than that she has some epigastric pain that feels to her like bad acid reflux. She states that it is constant and has been getting worse in the past day. She does not remember the last time she had a bowel movement. But she denies any blood in her BMs. She denies being short of breath or having noticed any lower extremity edema that deviates for her baseline. She also denies any syncopal episodes, d izziness, headache or loss of consciousness. I have tried calling her daugther [phone] and she states that she's only aware that her heart rate was "fast" and [facility] called the ER to further assess. HOSPITAL COURSE: Patient was admitted for questionable left-sided chest pain as well as tachycardia and a single episode of nonbilious nonbloody vomiting. Patient's constipation resolved, and she had a moderate BM while in ER. She was noted to have elevation in troponin with high-sensitivity troponin peaking at 84trending down to the 63. While her EKG showed on admission showed to be sinus tachycardia I suspect that perhaps her heart rate higher heart rate detected at [facility] was related to her paroxysmal atrial fibrillation. She remained in sinus throughout her admission at [facility]. It appears her beta-swetha was discontinued at some point in the past related to left anterior fascicular block and incomplete right bundle branch block. I discussed with Dr. Ramon, he agrees that likely the troponin elevation was related to tachycardia. Small dose beta-swetha metoprolol 12.5 mg twice daily was started on discharge, Dr. Ramon agrees with the low-dose beta-swetha. Patient will be started on pantoprazole on DC. She has not had any additional episode of abdominal pain or vomiting. I spoke to patient's niece (Alba Pennington, tel: [phone]) and provided updates. DISCHARGE MEDICATIONS: Please see below. ALLERGIES: Please see below. PHYSICAL EXAMINATION ON DISCHARGE: VITAL SIGNS: please see below General: NAD, comfortable HEENT: PERRLA, EOMI, sclerae clear Neck: supple, normal ROM, no JVD Respiratory: lungs CTAB, no wheeze, no rales, no crackles CVS: RRR, normal S1, S2, no murmurs Abdo: soft, no masses, no hepatosplenomegaly, BS+, no rebound tenderness Extremities: no edema, pulses 2+ MSK: no joint deformities, normal ROM Neuro: no focal neuro deficits, moving all 4 extremities, CN2-12 intact. Strength 5/5 in all 4 extremities. No nystagmus. Psych: calm, cooperative, AAO x 2 LABORATORY DATA: Please see below. IMAGING: Abdominal/pelvis CT impression: Severely limited and nearly nondiagnostic due to extensive motion artifact. No obvious acute process. CT angio chest impression: 1. There is no evidence of a pulmonary embolism. 2. Subsegmental atelectatic changes versus developing pneumonia in the right upper lower lobes. 3. Multiple lung nodules as described above. Three-month follow-up is recommended. 4. Cholelithiasis See full report from radiology/imaging Last echo was performed in January 2020 Normal left ventricular size with normal left ventricular systolic function and grade 2 diastolic dysfunction. Degenerative abnormalities in the anterior mitral leaflet. Normal central venous pressure normal pulmonary artery pressure. Mild left atrial enlargement. PROGNOSIS: good ACTIVITY: [As tolerated]. DIET: 2G sodium restricted DISCHARGE PLAN: DC to [facility] home. Start low dose metoprolol 12.5 mg BID for paroxysmal afib, monitor for bradycardia. She will continue with eliquis. Pantoprazole started to help with GERD symptoms. Patient will f/u on outpatient basis to review results of echocardiogram. DISPOSITION: DC to [facility]. ITEMS TO FOLLOWUP ON ON OUTPATIENT: 2D echocardiogram. DISCHARGE CONDITION: [Stable]. TIME SPENT ON DISCHARGE: 35 minutes Vital Signs/I&Os Vital Signs Date Time Temp Pulse Resp B/P (MAP) Pulse Ox O2 Delivery O2 Flow Rate FiO2 12/21/21 01:00 93 18 135/68 (90) 93 Room Air 03/15/21 14:32 97.0 I&O- Last 24 Hours up to 6 AM 03/16/21 06:00 Intake Total 550 ml Balance 550 ml Laboratory Data Labs 24H Laboratory Tests 2 03/15/21 15:11: Immature Granulocyte % (Auto) 0.2, Neutrophils (%) (Auto) 81.0H, Lymphocytes (%) (Auto) 12.5L, Monocytes (%) (Auto) 6.0, Eosinophils (%) (Auto) 0.1, Basophils (%) (Auto) 0.2, Neutrophils # (Auto) 6.8, Lymphocytes # (Auto) 1.1L, Monocytes # (Auto) 0.5, Eosinophils # (Auto) 0.0, Basophils # (Auto) 0.0, Nucleated Red Blood Cells % (auto) 0.0, Anion Gap 5L, Glomerular Filtration Rate > 60.0, Lactic Acid Level 2.5*H, Calcium Level 9.5, Total Bilirubin 0.7, Direct Bilirubin 0.1, Aspartate Amino Transf (AST/SGOT) 45H, Alanine Aminotransferase (ALT/SGPT) 37, Alkaline Phosphatase 76, Total Protein 6.4, Albumin 3.2, Albumin/Globulin Ratio 1.0L, Lipase 87 03/15/21 15:24: POC Troponin I (Misc) 0.05 03/15/21 18:51: POC Troponin I (Misc) 0.12H 03/15/21 21:42: POC Troponin I (Misc) 0.11H 03/15/21 22:50: Coronavirus (COVID-19)(PCR) NEGATIVE, Influenza Type A (RT-PCR) NEGATIVE, Influenza Type B (RT-PCR) NEGATIVE, Respiratory Syncytial Virus (PCR) NEGATIVE 03/16/21 00:42: Lactic Acid Followup at 4 Hours 1.2 03/16/21 01:45: Troponin I High Sensitivity 84.0H 03/16/21 06:46: Troponin I High Sensitivity 63.0H, Immature Granulocyte % (Auto) 0.3, Neutrophils (%) (Auto) 62.3, Lymphocytes (%) (Auto) 28.0, Monocytes (%) (Auto) 8.4H, Eosinophils (%) (Auto) 0.6, Basophils (%) (Auto) 0.4, Neutrophils # (Auto) 4.9, Lymphocytes # (Auto) 2.2, Monocytes # (Auto) 0.7, Eosinophils # (Auto) 0.1, Basophils # (Auto) 0.0, Nucleated Red Blood Cells % (auto) 0.0, Anion Gap 7L, Glomerular Filtration Rate > 60.0, Calcium Level 9.7, Magnesium Level 1.9, Total Bilirubin 0.5, Aspartate Amino Transf (AST/SGOT) 27, Alanine Aminotransferase (ALT/SGPT) 31, Alkaline Phosphatase 71, Total Creatine Kinase 24L, Creatine Kinase MB 1.9, Creatine Kinase MB Relative Index 7.92H, Total Protein 6.4, Albumin 3.3, Albumin/Globulin Ratio 1.1L CBC/BMP Laboratory Tests 03/15/21 15:11 03/16/21 06:46 Discharge Medications Scheduled Apixaban (Eliquis) 5 Mg Tablet, 5 MG PO BID, (Reported) Atorvastatin Calcium (Atorvastatin Calcium) 40 Mg Tablet, 40 MG PO DAILY, (Re ported) Calcium Carbonate/Vitamin D3 (Calcium 600 + Vit D 400 Softgl) 1 Each Capsule, 1 CAP PO DAILY, (Reported) Fluoxetine HCl (Fluoxetine HCl) 20 Mg Tablet, 10 MG PO DAILY, (Reported) Levothyroxine Sodium (Synthroid) 75 Mcg Tablet, 75 MCG PO DAILY, (Reported) Metoprolol Tartrate (Metoprolol Tartrate) 25 Mg Tablet, 12.5 MG PO BID Hold for heart rate < 60 beats per minute Pantoprazole Sodium (Pantoprazole Sodium) 40 Mg Tablet.dr, 1 TAB PO DAILY Sennosides (Senokot) 8.6 Mg Tablet, 17.2 MG PO DAILY, (Reported) Scheduled PRN Acetaminophen (Tylenol) 325 Mg Tablet, 650 MG PO Q4H PRN for PAIN, (Reported) Bisacodyl (Dulcolax) 10 Mg Supp.rect, 10 MG [place] DAILY PRN for CONSTIPATION, (Reported) Magnesium Hydroxide (Milk of Magnesia) 400 Mg/5 Ml Oral.susp, 30 ML PO DAILY PRN for CONSTIPATION, (Reported) Allergies Coded Allergies: lisinopril (Verified Allergy, Unknown, 12/29/19) EVA ANDREWS MD Mar 16, 2021 12:41
--- NOTE | 2021-03-16 19:24 | ECGEPIP ---
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
[2021-03-16 20:07] VITALS: BP 135/57
[2021-03-16 20:30] VITALS: BP 135/57
--- NOTE | 2021-03-17 07:22 | ECGEPIP ---
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
--- NOTE | 2021-03-17 09:31 | ECHO ---
ECHOCARDIOGRAM DATE OF PROCEDURE: 03/16/2021 Age: Gender: F Height: 152 cm Weight: 71 kg REFERRING PHYSICIAN: Dr. Sheikh INDICATION: Chest pain. MEASUREMENTS: IVS: 0.9 LV: 4.1 LVPW: 0.9 LA: 3.5 Aorta: 2.7 IVC: 0.9 Mitral E wave velocity is 48; A wave 70 E prime septal: 4.8 E prime lateral: 7.1 FINDINGS: This study is of acceptable technical quality. Underlying sinus rhythm with wide QRS complex. Left ventricle is normal size. Overall normal left ventricular (LV) systolic function with estimated left ventricular ejection fraction (LVEF) 60% to 65%. Computer calculated left ventricular ejection fraction (LVEF) 53% but it seems to me inaccurate. Right ventricle is normal size and systolic function. Both atria appear normal. Aortic valve is tricuspid. It is sclerotic but mobility is preserved. There are prominent degenerative abnormalities of mitral valve with mild annular calcifications and thickening and fibrosis of mitral leaflet including presence of calcifications in the chordal apparatus. Mobility is preserved. Tricuspid and pulmonic valves appear normal. No pericardial effusion is noted. Inferior vena cava is normal size. Aortic root is normal. Aortic arch and abdominal aorta were not visualized. Doppler interrogation reveals no aortic stenosis and trace insufficiency. There is also trace mitral and trace tricuspid insufficiency. Calculated pulmonary artery pressure was within normal limits. Mitral inflow pattern and tissue Doppler imaging of mitral annulus revealed grade 1 diastolic dysfunction. CONCLUSIONS: 1. Study is of acceptable technical quality; underlying sinus rhythm with wide QRS complex. 2. Normal left ventricle (LV) size with preserved left ventricular (LV) systolic function. Estimated left ventricular ejection fraction (LVEF) 60% to 65%. Grade 1 diastolic dysfunction. 3. No hemodynamically significant valvular disease. 4. Normal central venous pressure and normal pulmonary artery pressure.
== END 2021-03-16 20:34 | DRG 310 ==
LOC: M ED 14:24 → EDBD 14:24 → M ED INP 23:36 → M MSPAV 03-16 19:52
PROVIDERS: ADMIT Family Medicine; ATTEND Family Medicine
DX: I48.0 Paroxysmal atrial fibrillation (principal); K59.00 Constipation, unspecified; E66.9 Obesity, unspecified; I45.10 Unspecified right bundle-branch block; K21.9 Gastro-esophageal reflux disease without esophagitis; R07.9 Chest pain, unspecified; F31.9 Bipolar disorder, unspecified; E03.9 Hypothyroidism, unspecified; L57.0 Actinic keratosis; R00.0 Tachycardia, unspecified; E78.5 Hyperlipidemia, unspecified; I10 Essential (primary) hypertension; M81.0 Age-related osteoporosis without current pathological fracture; I27.20 Pulmonary hypertension, unspecified; G62.9 Polyneuropathy, unspecified; Z85.3 Personal history of malignant neoplasm of breast; Z90.12 Acquired absence of left breast and nipple; Z87.81 Personal history of (healed) traumatic fracture; F60.9 Personality disorder, unspecified; Z79.01 Long term (current) use of anticoagulants; Z79.899 Other long term (current) drug therapy; Z88.8 Allergy status to other drugs, medicaments and biological substances; Z20.822 Contact with and (suspected) exposure to COVID-19; Z68.30 Body mass index [BMI] 30.0-30.9, adult

== ENCOUNTER → 2021-03-15 | Outpatient (REF) | payer MEDICARE, MEDICAID ==
[~2021-03-15] MED LIST changes: +ATOR40TA75 PO; +CALCCAP4 PO; +FLUO1TAB3 PO; +PANT40TA29 PO; +SENO8.6T5 PO
--- NOTE | 2021-03-17 07:15 | ECGEPIP ---
[facility] Test Date: 2021-03-15 Pat Name: JANAE OLIVA Department: Room: - Gender: Female Ems Director: arin : 1935 Requested By: LEANNE TRAN Order Number: [id number] Reading MD: Tay Ramon Measurements Intervals [place] Rate: 131 P: 49 SD: 130 QRS: -80 QRSD: 126 T: 51 QT: 330 QTc: 487 Interpretive Statements Sinus tachycardia Left axis deviation Right bundle branch block HR is much faster since 03/23/20 Electronically Signed on 03-17-2021 7:15:06 EST by Tay Ramon
== END ==
LOC: SKLAB4 12:39
PROVIDERS: ATTEND Neuromusculoskeletal Medicine & OMM
DX: I45.10 Unspecified right bundle-branch block (principal)

== ENCOUNTER → 2021-03-15 | Outpatient (REF) | payer MEDICARE, MEDICAID | LOC: SKLAB4 13:16 | PROVIDERS: ATTEND Neuromusculoskeletal Medicine & OMM | DX: R00.0 Tachycardia, unspecified (principal); Z53.9 Procedure and treatment not carried out, unspecified reason ==

== ENCOUNTER → 2021-05-17 | Outpatient (REF) | payer MEDICARE, MEDICAID ==
[~2021-05-17] MED LIST changes: +ATOR40TA75 PO; +CALCCAP4 PO; +FLUO1TAB3 PO; +PANT40TA29 PO; +SENO8.6T5 PO
== END ==
LOC: SKLAB4 09:49
PROVIDERS: ATTEND Neuromusculoskeletal Medicine & OMM
DX: E03.9 Hypothyroidism, unspecified (principal)

== ENCOUNTER → 2021-06-01 | Outpatient (REF) | payer MEDICARE, MEDICAID | LOC: SKLAB4 07:00 | PROVIDERS: ATTEND Neuromusculoskeletal Medicine & OMM | DX: E03.9 Hypothyroidism, unspecified (principal) ==

== ENCOUNTER → 2021-07-13 | Outpatient (REF) | payer MEDICARE, MEDICAID ==
[2021-07-13 11:43] LABS: CHOLESTEROL RISK RATIO 3.55 (<5)
== END ==
LOC: SKLAB4 08:26
PROVIDERS: ATTEND Neuromusculoskeletal Medicine & OMM
DX: E03.9 Hypothyroidism, unspecified (principal)

== ENCOUNTER → 2021-09-09 | Outpatient (REF) | payer MEDICARE, MEDICAID ==
[2021-09-09 10:40] LABS: HEMOGLOBIN A1c 5.9 %
== END ==
LOC: SKLAB4 14:14
PROVIDERS: ATTEND Neuromusculoskeletal Medicine & OMM
DX: E78.5 Hyperlipidemia, unspecified (principal); E11.9 Type 2 diabetes mellitus without complications

== ENCOUNTER → 2021-09-13 | Outpatient (REF) | payer MEDICARE, MEDICAID | LOC: SKLAB4 09:16 | PROVIDERS: ATTEND Nurse Practitioner Family | DX: E05.90 Thyrotoxicosis, unspecified without thyrotoxic crisis or storm (principal) ==

== ENCOUNTER → 2021-12-09 | Outpatient (REF) | payer MEDICARE, MEDICAID ==
[2021-12-09 11:51] LABS: BLOOD UREA NITROGEN 25 MG/DL (7-18); CALCIUM LEVEL 8.9 MG/DL (8.8-10.2); CARBON DIOXIDE LEVEL 29 MEQ/L (21-32); CHLORIDE LEVEL 107 MEQ/L (98-107); CREATININE FOR GFR 0.75 MG/DL (0.55-1.30); GLOMERULAR FILTRATION RATE > 60.0 (>32); GLUCOSE, FASTING 109 MG/DL (70-100); POTASSIUM SERUM 4.1 MEQ/L (3.5-5.1); SODIUM LEVEL 142 MEQ/L (136-145)
== END ==
LOC: SKLAB4 07:00
PROVIDERS: ATTEND Neuromusculoskeletal Medicine & OMM
DX: E11.9 Type 2 diabetes mellitus without complications (principal); E03.9 Hypothyroidism, unspecified

== ENCOUNTER → 2021-12-15 | Outpatient (REF) | payer MEDICARE, MEDICAID | LOC: SKLAB4 12-14 13:56 | PROVIDERS: ATTEND Nurse Practitioner Adult Health | DX: E03.9 Hypothyroidism, unspecified (principal) ==

== ENCOUNTER → 2022-01-14 | Outpatient (REF) | payer MEDICARE, MEDICAID | LOC: SKLAB4 07:00 | PROVIDERS: ATTEND Nurse Practitioner Adult Health | DX: E03.9 Hypothyroidism, unspecified (principal) ==

== ENCOUNTER → 2022-03-16 | Outpatient (REF) | payer MEDICARE, MEDICAID ==
[2022-03-16 08:43] LABS: CHOLESTEROL RISK RATIO 3.75 (<5); HDL CHOLESTEROL 40.8 MG/DL (>40); LDL CHOLESTEROL 51.4 MG/DL (<100)
== END ==
LOC: SKLAB4 12:04
PROVIDERS: ATTEND Nurse Practitioner Adult Health
DX: E11.9 Type 2 diabetes mellitus without complications (principal); E78.5 Hyperlipidemia, unspecified

== ENCOUNTER → 2022-04-29 | Outpatient (REF) | payer MEDICARE, MEDICAID ==
[2022-04-29 13:52] LABS: HEMATOCRIT 41.3 % (36.0-47.0); HEMOGLOBIN 13.2 g/dl (12.0-15.5); MEAN CORPUSCULAR HEMOGLOBIN 28.2 pg (27.0-33.0); MEAN CORPUSCULAR VOLUME 88.2 fl (80.0-96.0); PLATELET COUNT, AUTOMATED 258 10^3/uL (150-450); RED BLOOD COUNT 4.68 10^6/uL (4.00-5.40); WHITE BLOOD COUNT 8.1 10^3/uL (4.0-10.0)
[2022-04-29 14:22] LABS: BLOOD UREA NITROGEN 22 MG/DL (9-23); CALCIUM LEVEL 9.1 MG/DL (8.3-10.6); CARBON DIOXIDE LEVEL 26 MMOL/L (20-31); CHLORIDE LEVEL 104 MMOL/L (98-107); CREATININE FOR GFR 0.91 MG/DL (0.55-1.30); GLOMERULAR FILTRATION RATE > 60.0 (>32); GLUCOSE, FASTING 98 MG/DL (74-106); POTASSIUM SERUM 4.6 MMOL/L (3.5-5.1); SODIUM LEVEL 140 MMOL/L (136-145)
== END ==
LOC: SKLAB4 11:51
PROVIDERS: ATTEND Nurse Practitioner Adult Health
DX: R05.9 Cough, unspecified (principal); J06.9 Acute upper respiratory infection, unspecified

== ENCOUNTER → 2022-05-09 | Outpatient (REF) | payer MEDICARE, MEDICAID | LOC: SKLAB4 12:33 | PROVIDERS: ATTEND Nurse Practitioner Adult Health | DX: J02.9 Acute pharyngitis, unspecified (principal) ==

== ENCOUNTER → 2022-06-08 | Outpatient (REF) | payer MEDICARE, MEDICAID ==
[2022-06-08 09:34] LABS: BLOOD UREA NITROGEN 22 MG/DL (9-23); CALCIUM LEVEL 8.9 MG/DL (8.3-10.6); CARBON DIOXIDE LEVEL 29 MMOL/L (20-31); CHLORIDE LEVEL 104 MMOL/L (98-107); CREATININE FOR GFR 0.73 MG/DL (0.55-1.30); GLOMERULAR FILTRATION RATE > 60.0 (>32); GLUCOSE, FASTING 150 MG/DL (74-106); POTASSIUM SERUM 4.2 MMOL/L (3.5-5.1); SODIUM LEVEL 141 MMOL/L (136-145); THYROID STIMULATING HORMONE 1.315 uIU/ML (0.55-4.78)
== END ==
LOC: SKLAB4 09:48
PROVIDERS: ATTEND Nurse Practitioner Adult Health
DX: E11.9 Type 2 diabetes mellitus without complications (principal); E03.9 Hypothyroidism, unspecified

== ENCOUNTER → 2022-07-18 | Outpatient (REF) | payer MEDICARE, MEDICAID ==
[~2022-07-18] MED LIST changes: +ARTIDRO4 OU; -POLYOPD OU
== END ==
LOC: SKLAB4 13:57
PROVIDERS: ATTEND Nurse Practitioner Adult Health
DX: I50.9 Heart failure, unspecified (principal)

== ENCOUNTER → 2022-08-09 | Outpatient (REF) | payer MEDICARE, MEDICAID ==
[2022-08-09 08:23] LABS: PHOSPHORUS LEVEL 3.4 MG/DL (2.4-5.1)
[2022-08-09 08:24] LABS: TOTAL 25(OH) VITAMIN D 36.6 NG/ML (20.0-100.0)
[2022-08-09 09:24] LABS: PTH INTACT 50.7 PG/ML (18.5-88.0)
== END ==
LOC: SKLAB4 11:00
PROVIDERS: ATTEND Nurse Practitioner Adult Health
DX: N18.9 Chronic kidney disease, unspecified (principal); I50.9 Heart failure, unspecified; Z79.899 Other long term (current) drug therapy

== ENCOUNTER → 2022-09-14 | Outpatient (REF) | payer MEDICARE, MEDICAID ==
[2022-09-14 08:24] LABS: CHOLESTEROL RISK RATIO 3.55 (<5); HDL CHOLESTEROL 35.7 MG/DL (>40); LDL CHOLESTEROL 38.1 MG/DL (<100); NON-HDL-C 91.3 MG/DL
[2022-09-14 09:03] LABS: HEMOGLOBIN A1c 6.7 % (4.0-6.0)
== END ==
LOC: SKLAB4 08:44
PROVIDERS: ATTEND Nurse Practitioner Adult Health
DX: E11.9 Type 2 diabetes mellitus without complications (principal); E78.5 Hyperlipidemia, unspecified

== ENCOUNTER 2022-10-23 16:22 | Emergency (ER) | payer MEDICARE, MEDICAID ==
[~2022-10-23] VITALS: Ht 160 cm; Wt 82.8 kg
[2022-10-23 17:20] LABS: BASO % 0.4 % (0.0-1.0); EOS # 0.1 10^3/uL (0.0-0.5); EOS % 1.5 % (0.0-3.0); HEMATOCRIT 39.4 % (36.0-47.0); HEMOGLOBIN 12.3 g/dl (12.0-15.5); LYMPH # 2.2 10^3/uL (1.5-5.0); LYMPH % 30.4 % (24.0-44.0); MEAN CORPUSCULAR HEMOGLOBIN 27.6 pg (27.0-33.0); MEAN CORPUSCULAR HGB CONC 31.2 g/dl (32.0-36.5); MEAN CORPUSCULAR VOLUME 88.3 fl (80.0-96.0); MONO # 0.7 10^3/uL (0.0-0.8); MONO % 9.4 % (2.0-8.0); NEUTROPHILS # 4.3 10^3/uL (1.5-8.5); PLATELET COUNT, AUTOMATED 233 10^3/uL (150-450); RED BLOOD COUNT 4.46 10^6/uL (4.00-5.40); WHITE BLOOD COUNT 7.4 10^3/uL (4.0-10.0)
[2022-10-23 17:39] LABS: INR 1.24; PROTHROMBIN TIME 15.9 SECONDS (12.5-14.5)
[2022-10-23 17:40] LABS: PARTIAL THROMBOPLASTIN TIME 28.9 SECONDS (24.8-34.2)
[2022-10-23 17:53] LABS: CK-MB VALUE MASS 1.1 NG/ML (<3.6)
[2022-10-23 17:54] LABS: LIPASE 38 U/L (12-53)
[2022-10-23 17:56] LABS: ALBUMIN 3.3 G/DL (3.2-5.2); ALKALINE PHOSPHATASE 117 U/L (46-116); ALT/SGPT 28 U/L (7.0-40); AST/SGOT 22 U/L (<34); BILIRUBIN,DIRECT < 0.1 MG/DL (<0.4); BILIRUBIN,TOTAL 0.2 MG/DL (0.3-1.2); BLOOD UREA NITROGEN 25 MG/DL (9-23); CALCIUM LEVEL 8.7 MG/DL (8.3-10.6); CARBON DIOXIDE LEVEL 29 MMOL/L (20-31); CHLORIDE LEVEL 108 MMOL/L (98-107); CPK CREATINE PHOSPHOKINASE 31 U/L (34-145); GLOMERULAR FILTRATION RATE > 60.0 (>32); GLUCOSE, FASTING 138 MG/DL (74-106); MAGNESIUM LEVEL 1.4 MG/DL (1.8-2.4); MB/CK RELATIVE INDEX 3.54 (< OR =4); POTASSIUM SERUM 4.1 MMOL/L (3.5-5.1); SODIUM LEVEL 146 MMOL/L (136-145); TOTAL PROTEIN 6.2 G/DL (5.7-8.2)
[2022-10-23 17:57] LABS: THYROID STIMULATING HORMONE 2.648 uIU/ML (0.55-4.78)
[2022-10-23 17:58] LABS: FREE T4 0.95 NG/DL (0.89-1.76)
[2022-10-23] MEDS ORDERED: MAG SULF 1GM/100ML (MAG RUN) 1 GM in IV 1 EA IV ONE (18:00)
[2022-10-23 18:52] LABS: CK-MB VALUE MASS < 1.0 NG/ML (<3.6)
[2022-10-23 18:53] LABS: CPK CREATINE PHOSPHOKINASE 28 U/L (34-145); MB/CK RELATIVE INDEX 3.57 (< OR =4)
[2022-10-23 19:00] VITALS: TEMP 98.1
[2022-10-23] MEDS ORDERED: ESSE250T PO (19:41)
[2022-10-23 20:00] VITALS: BP 120/57; O2SAT 97
== END 2022-10-23 20:15 | disposition home or self-care (01) ==
LOC: M ED 16:22 → EDBD 16:22 → M ED 20:15
DX: E83.42 Hypomagnesemia (principal); R00.0 Tachycardia, unspecified; I44.4 Left anterior fascicular block; E11.9 Type 2 diabetes mellitus without complications; F31.9 Bipolar disorder, unspecified; K21.9 Gastro-esophageal reflux disease without esophagitis; F79 Unspecified intellectual disabilities; Z86.79 Personal history of other diseases of the circulatory system; Z79.01 Long term (current) use of anticoagulants; Z79.899 Other long term (current) drug therapy; Z88.8 Allergy status to other drugs, medicaments and biological substances
CPT/HCPCS: 71045; 80048; 80076; 82550; 82553; 83690; 83735; 83880; 84439; 84443; 84484; 85025; 85610; 85730; 93005; 93041; 94760; 96374; 99285; J3475

== ENCOUNTER → 2022-11-08 | Outpatient (REF) | payer MEDICARE, MEDICAID ==
[~2022-11-08] MED LIST changes: +ESSE250T PO
== END ==
LOC: SKLAB4 15:43
PROVIDERS: ATTEND Nurse Practitioner Adult Health
DX: E83.42 Hypomagnesemia (principal)

== ENCOUNTER → 2022-11-29 | Outpatient (REF) | payer MEDICARE, MEDICAID | LOC: M SFHCDERM 17:31 | PROVIDERS: ATTEND Nurse Practitioner Family | DX: L82.0 Inflamed seborrheic keratosis (principal) ==

== ENCOUNTER → 2022-12-14 | Outpatient (REF) | payer MEDICARE, MEDICAID ==
[2022-12-14 09:12] LABS: BLOOD UREA NITROGEN 24 MG/DL (9-23); CARBON DIOXIDE LEVEL 32 MMOL/L (20-31); CHLORIDE LEVEL 104 MMOL/L (98-107); CREATININE FOR GFR 0.81 MG/DL (0.55-1.30); GLOMERULAR FILTRATION RATE > 60.0 (>32); GLUCOSE, FASTING 113 MG/DL (74-106); POTASSIUM SERUM 4.5 MMOL/L (3.5-5.1); SODIUM LEVEL 142 MMOL/L (136-145); THYROID STIMULATING HORMONE 4.212 uIU/ML (0.55-4.78)
== END ==
LOC: SKLAB4 08:04
PROVIDERS: ATTEND Nurse Practitioner Adult Health
DX: E11.9 Type 2 diabetes mellitus without complications (principal); E03.9 Hypothyroidism, unspecified

== ENCOUNTER → 2023-03-15 | Outpatient (REF) | payer MEDICARE, MEDICAID ==
[2023-03-15 07:46] LABS: HEMOGLOBIN A1c 6.6 % (4.0-6.0)
[2023-03-15 07:48] LABS: CHOLESTEROL RISK RATIO 4.33 (<5); HDL CHOLESTEROL 30.7 MG/DL (>40); LDL CHOLESTEROL 40.3 MG/DL (<100); NON-HDL-C 102.3 MG/DL
== END ==
LOC: SKLAB4 12:00
PROVIDERS: ATTEND Nurse Practitioner Adult Health
DX: E03.9 Hypothyroidism, unspecified (principal); E11.9 Type 2 diabetes mellitus without complications; E78.5 Hyperlipidemia, unspecified

== ENCOUNTER → 2023-04-05 | Outpatient (REF) | payer MEDICARE, MEDICAID ==
[2023-04-05 09:42] LABS: THYROID STIMULATING HORMONE 4.446 uIU/ML (0.55-4.78)
== END ==
LOC: SKLAB4 08:15
PROVIDERS: ATTEND Internal Medicine
DX: E03.9 Hypothyroidism, unspecified (principal)

== ENCOUNTER → 2023-04-25 | Outpatient (REF) | payer MEDICARE, MEDICAID | LOC: SKLAB4 13:10 | PROVIDERS: ATTEND Nurse Practitioner Adult Health | DX: Z53.8 Procedure and treatment not carried out for other reasons (principal) ==

== ENCOUNTER → 2023-04-25 | Outpatient (CLI) | payer MEDICARE, MEDICAID | LOC: M RAD 13:46 | PROVIDERS: ATTEND Internal Medicine | DX: Z01.818 Encounter for other preprocedural examination (principal) ==

== ENCOUNTER → 2023-04-25 | Outpatient (REF) | payer MEDICARE, MEDICAID ==
[~2023-04-25] MED LIST changes: +MIRT-60 PO; +OLOP2.5D7 OU; +OMEP40CA5 PO
[2023-04-25 13:56] LABS: HEMATOCRIT 37.3 % (36.0-47.0); HEMOGLOBIN 11.8 g/dl (12.0-15.5); MEAN CORPUSCULAR HEMOGLOBIN 27.4 pg (27.0-33.0); MEAN CORPUSCULAR HGB CONC 31.6 g/dl (32.0-36.5); MEAN CORPUSCULAR VOLUME 86.7 fl (80.0-96.0); PLATELET COUNT, AUTOMATED 248 10^3/uL (150-450); WHITE BLOOD COUNT 7.3 10^3/uL (4.0-10.0)
[2023-04-25 14:24] LABS: BLOOD UREA NITROGEN 20 MG/DL (9-23); CARBON DIOXIDE LEVEL 30 MMOL/L (20-31); CHLORIDE LEVEL 104 MMOL/L (98-107); CREATININE FOR GFR 0.83 MG/DL (0.55-1.30); GLOMERULAR FILTRATION RATE > 60.0 (>32); GLUCOSE, FASTING 116 MG/DL (74-106); POTASSIUM SERUM 4.5 MMOL/L (3.5-5.1); SODIUM LEVEL 139 MMOL/L (136-145)
== END ==
LOC: SKLAB4 13:11
PROVIDERS: ATTEND Nurse Practitioner Adult Health
DX: Z01.818 Encounter for other preprocedural examination (principal); I45.10 Unspecified right bundle-branch block; Z79.899 Other long term (current) drug therapy

== ENCOUNTER → 2023-04-26 | Outpatient (REF) | payer MEDICARE, MEDICAID ==
[~2023-04-26] MED LIST changes: -MIRT-60 PO; -OLOP2.5D7 OU; -OMEP40CA5 PO
== END ==
LOC: SKLAB4 12:20
PROVIDERS: ATTEND Nurse Practitioner Adult Health
DX: Z01.818 Encounter for other preprocedural examination (principal); I45.10 Unspecified right bundle-branch block; D48.5 Neoplasm of uncertain behavior of skin

== ENCOUNTER 2023-05-17 10:11 | Day surgery (SDC) | payer MEDICARE, MEDICAID ==
[~2023-05-17] VITALS: Ht 152.4 cm; Wt 85.7 kg
[~2023-05-17 10:11] MED LIST changes: +MIRT-60 PO; +OLOP2.5D7 OU; +OMEP40CA5 PO
[2023-05-17] MEDS ORDERED: LIDOCAINE 2% 100MG/5ML SDV (FOR ANES.) As Ordered ONE (10:24)
[2023-05-17] MEDS ORDERED: propofoL 200 MG/20 ML VIAL As Ordered ONE (10:24)
[2023-05-17] MEDS ORDERED: ONDANSETRON 4MG 2ML VIAL As Ordered ONE (10:24)
[2023-05-17] MEDS ORDERED: fentaNYL 100 MCG/2 ML INJECTION As Ordered ONE (10:27)
[2023-05-17] MEDS ORDERED: CIPRODEX OTIC SUSP 7.5ML As Ordered ONE (10:49)
[2023-05-17] MEDS ORDERED: OXYMETAZOLINE 0.05% NASAL SPRAY (AFRIN) As Ordered ONE (10:49)
[2023-05-17] MEDS ORDERED: LIDOCAINE W/EPINEPHRINE 1% 20ML VIAL As Ordered ONE (11:51)
[2023-05-17] MEDS ORDERED: ePHEDrine SULFATE 25 MG/5 ML(5MG/ML) SYRINGE As Ordered ONE (11:53)
[2023-05-17] MEDS ORDERED: SILVER NITRATE APPLICATOR (1 = QTY 10) As Ordered ONE (11:58)
[2023-05-17] MEDS ORDERED: BACITRACIN OINTMENT 30GM TUBE As Ordered ONE (12:02)
[2023-05-17] MEDS ORDERED: fentaNYL 100 MCG/2 ML INJECTION IV PRN (12:15)
[2023-05-17] MEDS ORDERED: LR 1,000 ML IV SCH (12:15)
[2023-05-17] MEDS ORDERED: ONDANSETRON 4MG 2ML VIAL IV PRN (12:15)
[2023-05-17 13:43] VITALS: BP 150/73; TEMP 97.7; O2SAT 95
== END 2023-05-17 14:18 | disposition home or self-care (01) ==
LOC: M SDC 10:11
PROVIDERS: ATTEND Otolaryngology
DX: D23.21 Other benign neoplasm of skin of right ear and external auricular canal (principal); I10 Essential (primary) hypertension; E11.9 Type 2 diabetes mellitus without complications; E03.9 Hypothyroidism, unspecified; K21.9 Gastro-esophageal reflux disease without esophagitis; E78.5 Hyperlipidemia, unspecified; F31.9 Bipolar disorder, unspecified; F32.A Depression, unspecified; F41.9 Anxiety disorder, unspecified; Z79.01 Long term (current) use of anticoagulants; Z79.899 Other long term (current) drug therapy; F03.90 Unspecified dementia, unspecified severity, without behavioral disturbance, psychotic disturbance, mood disturbance, and anxiety; I48.91 Unspecified atrial fibrillation; Z88.8 Allergy status to other drugs, medicaments and biological substances; Z85.3 Personal history of malignant neoplasm of breast
CPT/HCPCS: 69145; 88305; J1100; J2405; J3010

== ENCOUNTER → 2023-06-14 | Outpatient (REF) | payer MEDICARE, MEDICAID ==
[2023-06-14 12:30] LABS: BLOOD UREA NITROGEN 25 MG/DL (9-23); CALCIUM LEVEL 8.8 MG/DL (8.3-10.6); CARBON DIOXIDE LEVEL 32 MMOL/L (20-31); CHLORIDE LEVEL 105 MMOL/L (98-107); CREATININE FOR GFR 0.78 MG/DL (0.55-1.30); GLOMERULAR FILTRATION RATE > 60.0 (>32); GLUCOSE, FASTING 139 MG/DL (74-106); POTASSIUM SERUM 4.2 MMOL/L (3.5-5.1); SODIUM LEVEL 140 MMOL/L (136-145)
== END ==
LOC: SKLAB4 13:59
PROVIDERS: ATTEND Nurse Practitioner Adult Health
DX: E11.9 Type 2 diabetes mellitus without complications (principal); E03.9 Hypothyroidism, unspecified

== ENCOUNTER → 2023-07-12 | Outpatient (REF) | payer MEDICARE, MEDICAID ==
[~2023-07-12] MED LIST changes: -MIRT-60 PO; +MIRT-89 PO
[2023-07-12 13:11] LABS: CHOLESTEROL RISK RATIO 3.62 (<5); HDL CHOLESTEROL 39.4 MG/DL (>40); LDL CHOLESTEROL 34.6 MG/DL (<100); NON-HDL-C 103.6 MG/DL
== END ==
LOC: SKLAB4 07:00
PROVIDERS: ATTEND Nurse Practitioner Adult Health
DX: E78.5 Hyperlipidemia, unspecified (principal)

== ENCOUNTER → 2023-09-14 | Outpatient (REF) | payer MEDICARE, MEDICAID ==
[2023-09-14 07:18] LABS: HEMOGLOBIN A1c 6.2 % (4.0-6.0)
[2023-09-14 07:33] LABS: PHOSPHORUS LEVEL 3.2 MG/DL (2.4-5.1)
[2023-09-14 07:35] LABS: PTH INTACT 43.4 PG/ML (18.5-88.0)
== END ==
LOC: SKLAB4 07:00
PROVIDERS: ATTEND Internal Medicine
DX: E11.9 Type 2 diabetes mellitus without complications (principal); E21.3 Hyperparathyroidism, unspecified; E55.9 Vitamin D deficiency, unspecified

== ENCOUNTER → 2023-09-26 | Outpatient (REF) | payer MEDICARE, MEDICAID | LOC: M SFHCDERM 16:26 | PROVIDERS: ATTEND Nurse Practitioner Family | DX: L82.1 Other seborrheic keratosis (principal) ==

== ENCOUNTER → 2023-10-10 | Outpatient (REF) | payer MEDICARE, MEDICAID | LOC: M SFHCDERM 17:46 | PROVIDERS: ATTEND Nurse Practitioner Family | DX: L57.0 Actinic keratosis (principal) ==

== ENCOUNTER → 2023-11-15 | Outpatient (REF) | payer MEDICARE, MEDICAID | LOC: SKLAB4 09:05 | PROVIDERS: ATTEND Internal Medicine | DX: Z53.8 Procedure and treatment not carried out for other reasons (principal) ==

== ENCOUNTER → 2023-11-16 | Outpatient (REF) | payer MEDICARE, MEDICAID ==
[2023-11-16 07:05] LABS: HEMATOCRIT 37.2 % (36.0-47.0); HEMOGLOBIN 11.8 g/dl (12.0-15.5); MEAN CORPUSCULAR HEMOGLOBIN 27.7 pg (27.0-33.0); MEAN CORPUSCULAR HGB CONC 31.7 g/dl (32.0-36.5); MEAN CORPUSCULAR VOLUME 87.3 fl (80.0-96.0); PLATELET COUNT, AUTOMATED 232 10^3/uL (150-450); RED BLOOD COUNT 4.26 10^6/uL (4.00-5.40); WHITE BLOOD COUNT 6.3 10^3/uL (4.0-10.0)
[2023-11-16 07:24] LABS: CHOLESTEROL RISK RATIO 6.29 (<5); HDL CHOLESTEROL 34.3 MG/DL (>40); LDL CHOLESTEROL 139.5 MG/DL (<100); NON-HDL-C 181.7 MG/DL
[2023-11-16 07:27] LABS: THYROID STIMULATING HORMONE 3.43 uIU/ML (0.55-4.78)
== END ==
LOC: SKLAB4 07:00
PROVIDERS: ATTEND Internal Medicine
DX: E03.9 Hypothyroidism, unspecified (principal); E78.5 Hyperlipidemia, unspecified

== ENCOUNTER → 2023-12-05 | Outpatient (REF) | LOC: SKLAB4 19:13 | PROVIDERS: ATTEND Internal Medicine | DX: Z53.8 Procedure and treatment not carried out for other reasons (principal) ==

== ENCOUNTER → 2023-12-10 | Outpatient (REF) | payer MEDICARE, MEDICAID | LOC: SKLAB4 16:45 | PROVIDERS: ATTEND Nurse Practitioner Adult Health | DX: K92.1 Melena (principal) ==

== ENCOUNTER → 2023-12-12 | Outpatient (REF) | payer MEDICARE, MEDICAID | LOC: SKLAB4 01:20 | PROVIDERS: ATTEND Internal Medicine | DX: R19.5 Other fecal abnormalities (principal); Z53.8 Procedure and treatment not carried out for other reasons ==

== ENCOUNTER → 2023-12-14 | Outpatient (REF) | payer MEDICARE, MEDICAID ==
[2023-12-14 10:36] LABS: BLOOD UREA NITROGEN 18 MG/DL (9-23); CALCIUM LEVEL 9.1 MG/DL (8.3-10.6); CARBON DIOXIDE LEVEL 30 MMOL/L (20-31); CHLORIDE LEVEL 105 MMOL/L (98-107); CREATININE FOR GFR 0.86 MG/DL (0.55-1.30); GLOMERULAR FILTRATION RATE > 60.0 (>32); GLUCOSE, FASTING 101 MG/DL (74-106); POTASSIUM SERUM 4.5 MMOL/L (3.5-5.1); SODIUM LEVEL 139 MMOL/L (136-145)
== END ==
LOC: SKLAB4 00:10
PROVIDERS: ATTEND Internal Medicine
DX: R19.5 Other fecal abnormalities (principal)

== ENCOUNTER → 2024-02-19 | Outpatient (REF) | payer MEDICARE, MEDICAID ==
[~2024-02-19] MED LIST changes: -OLAN2.5T25 PO; +OLAN2.5T53 PO
== END ==
LOC: SKLAB4 14:19
PROVIDERS: ATTEND Nurse Practitioner Adult Health
DX: M17.12 Unilateral primary osteoarthritis, left knee (principal); M79.89 Other specified soft tissue disorders

== ENCOUNTER → 2024-03-19 | Outpatient (REF) | payer MEDICARE, MEDICAID ==
[2024-03-19 09:15] LABS: HEMOGLOBIN A1c 6.2 % (4.0-6.0)
== END ==
LOC: SKLAB4 07:00
PROVIDERS: ATTEND Internal Medicine
DX: E11.9 Type 2 diabetes mellitus without complications (principal); E21.3 Hyperparathyroidism, unspecified

== ENCOUNTER 2024-04-23 14:32 | Observation (INO) | payer MEDICARE, MEDICAID ==
[~2024-04-23] VITALS: Ht 152.4 cm; Wt 81.9 kg
[~2024-04-23 14:32] MED LIST changes: -AMIO200T49 PO; -AQUAOIN12 TP; -CERA355L TP; -FENO48TA8 PO; -VITA500045 PO; -ZINC20OI21 TOP; -ZINC99OI TP
[2024-04-23 16:06] LABS: BASO % 0.4 % (0.0-1.0); EOS # 0.1 10^3/uL (0.0-0.5); EOS % 1.5 % (0.0-3.0); HEMATOCRIT 39.4 % (36.0-47.0); LYMPH # 2.6 10^3/uL (1.5-5.0); MEAN CORPUSCULAR HEMOGLOBIN 29.5 pg (27.0-33.0); MEAN CORPUSCULAR VOLUME 89.5 fl (80.0-96.0); MONO # 0.7 10^3/uL (0.0-0.8); MONO % 9.6 % (2.0-8.0); NEUTROPHILS # 4.1 10^3/uL (1.5-8.5); NEUTROPHILS % 54.2 % (36.0-66.0); PLATELET COUNT, AUTOMATED 272 10^3/uL (150-450); WHITE BLOOD COUNT 7.6 10^3/uL (4.0-10.0)
[2024-04-23] MEDS: METOPROLOL 5 MG/5 ML VIAL IV STA (16:09)
[2024-04-23 16:22] LABS: INR 1.19; PARTIAL THROMBOPLASTIN TIME 29.3 SECONDS (24.8-34.2); PROTHROMBIN TIME 15.4 SECONDS (12.5-14.5)
[2024-04-23 16:31] LABS: ALBUMIN 3.2 G/DL (3.2-5.2); ALKALINE PHOSPHATASE 46 U/L (35-104); ALT/SGPT 21 U/L (7.0-40); AST/SGOT 18 U/L (<34); BILIRUBIN,DIRECT < 0.1 MG/DL (<0.4); BILIRUBIN,TOTAL 0.2 MG/DL (0.3-1.2); BLOOD UREA NITROGEN 22 MG/DL (9-23); CARBON DIOXIDE LEVEL 29 MMOL/L (20-31); CHLORIDE LEVEL 104 MMOL/L (98-107); CK-MB VALUE MASS < 1.0 NG/ML (<3.6); CREATININE FOR GFR 0.88 MG/DL (0.55-1.30); GLOMERULAR FILTRATION RATE > 60.0 (>32); GLUCOSE, FASTING 120 MG/DL (74-106); MAGNESIUM LEVEL 1.4 MG/DL (1.8-2.4); PHOSPHORUS LEVEL 2.7 MG/DL (2.4-5.1); POTASSIUM SERUM 4.4 MMOL/L (3.5-5.1); SODIUM LEVEL 142 MMOL/L (136-145); TOTAL PROTEIN 6.1 G/DL (5.7-8.2)
[2024-04-23 16:32] LABS: THYROID STIMULATING HORMONE 2.271 uIU/ML (0.55-4.78)
[2024-04-23 16:34] LABS: CPK CREATINE PHOSPHOKINASE 30 U/L (34-145); FREE T4 1.24 NG/DL (0.89-1.76); MB/CK RELATIVE INDEX 3.33 (< OR =4)
[2024-04-23] MEDS: METOPROLOL 5 MG/5 ML VIAL IV SCH (17:00)
[2024-04-23] MEDS: MAG SULF 1GM/100ML (MAG RUN) 1 GM in IV 1 EA IV ONE (17:04)
[2024-04-23 17:56] LABS: CK-MB VALUE MASS < 1.0 NG/ML (<3.6)
[2024-04-23 17:59] LABS: CPK CREATINE PHOSPHOKINASE 33 U/L (34-145); MB/CK RELATIVE INDEX 3.03 (< OR =4)
[2024-04-23 18:53] LABS: CK-MB VALUE MASS < 1.0 NG/ML (<3.6)
[2024-04-23 18:55] LABS: CPK CREATINE PHOSPHOKINASE 28 U/L (34-145); MB/CK RELATIVE INDEX 3.57 (< OR =4)
[2024-04-23] MEDS: AMIODARONE HCL 150 MG in IV 1 EA IV ONE (18:57)
[2024-04-23] MEDS: AMIODARONE HCL 360 MG in IV 1 EA IV SCH (19:21)
[2024-04-23 19:45] LABS: KETONE, URINE AUTO RFX NEGATIVE (NEGATIVE); MUCUS, URINE RFX SMALL (NEGATIVE); NITRITE, URINE AUTO RFX NEGATIVE (NEGATIVE); RBC, URINE AUTO RFX 1 /HPF (0-3); SQUAM EPITHELIAL CELL UR AURFX 1 /HPF (0-6)
[2024-04-23 19:55] LABS: LEUKOCYTE ESTERASE UR AUTO RFX TRACE (NEGATIVE); WBC, URINE AUTO RFX 15 /HPF (0-3)
[2024-04-23] MEDS: cefTRIAXone SOD 1 GM in DEXTROSE 5% (D5W) ADV/MINI-BAG 50 ML IV ONE (20:08)
[2024-04-23] MEDS ORDERED: FENO48TA8 PO (21:04)
[2024-04-23] MEDS ORDERED: METO1TAB87 PO (21:04)
[2024-04-23] MEDS ORDERED: VITA500045 PO (21:14)
[2024-04-23] MEDS ORDERED: CERA355L TP (21:37)
[2024-04-23] MEDS ORDERED: ACET-907 PO (21:37)
[2024-04-23] MEDS ORDERED: ZINC20OI21 TOP (21:37)
[2024-04-23] MEDS ORDERED: ZINC99OI TP (21:42)
[2024-04-23] MEDS ORDERED: AQUAOIN12 TP (21:44)
[2024-04-23] MEDS ORDERED: HOME MED LIST COMPLETE! XX SCH (21:45)
[2024-04-24 06:50] LABS: HEMATOCRIT 39.5 % (36.0-47.0); HEMOGLOBIN 13.1 g/dl (12.0-15.5); MEAN CORPUSCULAR HEMOGLOBIN 29.6 pg (27.0-33.0); MEAN CORPUSCULAR HGB CONC 33.2 g/dl (32.0-36.5); MEAN CORPUSCULAR VOLUME 89.4 fl (80.0-96.0); PLATELET COUNT, AUTOMATED 253 10^3/uL (150-450); RED BLOOD COUNT 4.42 10^6/uL (4.00-5.40); WHITE BLOOD COUNT 7.6 10^3/uL (4.0-10.0)
[2024-04-24 07:04] LABS: ALKALINE PHOSPHATASE 42 U/L (35-104); ALT/SGPT 21 U/L (7.0-40); AST/SGOT 21 U/L (<34); BILIRUBIN,TOTAL 0.2 MG/DL (0.3-1.2); BLOOD UREA NITROGEN 21 MG/DL (9-23); CALCIUM LEVEL 8.7 MG/DL (8.3-10.6); CARBON DIOXIDE LEVEL 29 MMOL/L (20-31); CHLORIDE LEVEL 103 MMOL/L (98-107); CREATININE FOR GFR 0.85 MG/DL (0.55-1.30); GLOMERULAR FILTRATION RATE > 60.0 (>32); GLUCOSE, FASTING 103 MG/DL (74-106); POTASSIUM SERUM 4.5 MMOL/L (3.5-5.1); SODIUM LEVEL 143 MMOL/L (136-145); TOTAL PROTEIN 5.9 G/DL (5.7-8.2)
[2024-04-24] MEDS: AMIODARONE 200 MG TAB (PACERONE) PO SCH (08:46)
[2024-04-24] MEDS ORDERED: ACETAMINOPHEN 325 MG TAB PO PRN (15:25)
[2024-04-24] MEDS ORDERED: BISACODYL 10MG SUPP PR PRN (15:25)
[2024-04-24] MEDS ORDERED: MOM 30ML SUSPENSION UDC PO PRN (15:25)
[2024-04-24 17:00] VITALS: BP 153/66; TEMP 97.5; O2SAT 95
[2024-04-24 20:11] VITALS: BP 152/58; TEMP 97.1; O2SAT 99
[2024-04-24 21:13] VITALS: BP 152/58
[2024-04-24] MEDS: METOPROLOL TART 25 MG TABLET PO SCH (21:13)
[2024-04-24] MEDS: FENOFIBRATE 48MG TABLET (TRICOR) PO SCH (21:13)
[2024-04-24] MEDS: APIXABAN 5 MG TAB (ELIQUIS) PO SCH (21:13)
[2024-04-24 23:58] VITALS: BP 156/68; TEMP 98.3; O2SAT 96
[2024-04-25 04:01] VITALS: BP 141/64; TEMP 96.8; O2SAT 93
[2024-04-25] MEDS: LEVOTHYROXINE 75MCG TABLET (0.075MG) PO SCH (06:07)
[2024-04-25 07:10] VITALS: BP 109/51; TEMP 97.3; O2SAT 94
[2024-04-25] MEDS: FLUoxetine 20MG CAP PO SCH (09:27)
[2024-04-25] MEDS ORDERED: AMIO200T49 PO (11:33)
[2024-04-25 12:22] VITALS: BP 110/59; TEMP 97.5; O2SAT 93
== END 2024-04-25 13:19 ==
LOC: EDBD 14:32 → M ED 14:32 → M ED INP 21:20 → M PCU 04-24 16:48
PROVIDERS: ADMIT Student in an Organized Health Care Education/Training Program; ATTEND Student in an Organized Health Care Education/Training Program
DX: I48.92 Unspecified atrial flutter (principal); I10 Essential (primary) hypertension; F03.90 Unspecified dementia, unspecified severity, without behavioral disturbance, psychotic disturbance, mood disturbance, and anxiety; E11.9 Type 2 diabetes mellitus without complications; Z79.01 Long term (current) use of anticoagulants; Z79.899 Other long term (current) drug therapy
CPT/HCPCS: 36415; 71045; 80048; 80053; 80076; 81001; 82550; 82553; 83735; 83880; 84100; 84439; 84443; 84484; 85025; 85027; 85610; 85730; 87088; 87186; 87426; 93005; 93041; 94760; 96361; 96365; 96375; 96376; 99285; G0378; G0463; J0283; J0696; J3475

== ENCOUNTER → 2024-04-23 | Outpatient (REF) | payer MEDICARE, MEDICAID ==
[~2024-04-23] MED LIST changes: +AMIO200T49 PO; +AQUAOIN12 TP; +CERA355L TP; +FENO48TA8 PO; +VITA500045 PO; +ZINC20OI21 TOP; +ZINC99OI TP
== END ==
LOC: SKLAB4 12:57
PROVIDERS: ATTEND Internal Medicine
DX: R00.0 Tachycardia, unspecified (principal); I45.10 Unspecified right bundle-branch block

== ENCOUNTER 2024-05-21 08:57 | Emergency (ER) | payer MEDICARE, MEDICAID ==
[2024-05-21 11:16] VITALS: BP 137/56; TEMP 98.4
[2024-05-21 11:17] VITALS: O2SAT 91
== END 2024-05-21 11:22 | disposition home or self-care (01) ==
LOC: M ED 08:57 → EDBD 08:57 → M ED 11:22
DX: S00.03XA Contusion of scalp, initial encounter (principal); W01.198A Fall on same level from slipping, tripping and stumbling with subsequent striking against other object, initial encounter; R29.6 Repeated falls; E78.5 Hyperlipidemia, unspecified; I10 Essential (primary) hypertension; M50.30 Other cervical disc degeneration, unspecified cervical region; Z79.01 Long term (current) use of anticoagulants; Y92.129 Unspecified place in nursing home as the place of occurrence of the external cause; Y93.89 Activity, other specified; Y99.9 Unspecified external cause status; Z86.79 Personal history of other diseases of the circulatory system; Z88.8 Allergy status to other drugs, medicaments and biological substances; Z79.899 Other long term (current) drug therapy; Z79.1 Long term (current) use of non-steroidal anti-inflammatories (NSAID); R53.1 Weakness

== ENCOUNTER → 2024-05-21 | Outpatient (REF) | payer MEDICARE, MEDICAID ==
[~2024-05-21] MED LIST changes: +AMIO200T49 PO; +AQUAOIN12 TP; +CERA355L TP; +FENO48TA8 PO; +VITA500045 PO; +ZINC20OI21 TOP; +ZINC99OI TP
[2024-05-21 14:17] LABS: HEMATOCRIT 36.7 % (36.0-47.0); HEMOGLOBIN 11.9 g/dl (12.0-15.5); MEAN CORPUSCULAR HEMOGLOBIN 29.8 pg (27.0-33.0); MEAN CORPUSCULAR HGB CONC 32.4 g/dl (32.0-36.5); MEAN CORPUSCULAR VOLUME 91.8 fl (80.0-96.0); PLATELET COUNT, AUTOMATED 184 10^3/uL (150-450); WHITE BLOOD COUNT 5.9 10^3/uL (4.0-10.0)
[2024-05-21 14:47] LABS: BLOOD UREA NITROGEN 24 MG/DL (9-23); CALCIUM LEVEL 8.6 MG/DL (8.3-10.6); CARBON DIOXIDE LEVEL 30 MMOL/L (20-31); CHLORIDE LEVEL 100 MMOL/L (98-107); CREATININE FOR GFR 0.87 MG/DL (0.55-1.30); GLOMERULAR FILTRATION RATE > 60.0 (>32); GLUCOSE, FASTING 137 MG/DL (74-106); POTASSIUM SERUM 4.2 MMOL/L (3.5-5.1); SODIUM LEVEL 138 MMOL/L (136-145)
== END ==
LOC: SKLAB4 12:58
PROVIDERS: ATTEND Internal Medicine
DX: R53.1 Weakness (principal)

== ENCOUNTER → 2024-05-22 | Outpatient (REF) | payer MEDICARE, MEDICAID | LOC: SKLAB4 08:03 | PROVIDERS: ATTEND Internal Medicine | DX: Z91.81 History of falling (principal) ==

== ENCOUNTER → 2024-06-12 | Outpatient (CLI) | payer MEDICARE, MEDICAID | LOC: M CARPUL 13:03 | PROVIDERS: ATTEND Nurse Practitioner Adult Health | DX: Z53.21 Procedure and treatment not carried out due to patient leaving prior to being seen by health care provider (principal) ==

== ENCOUNTER → 2024-07-15 | Outpatient (CLI) | payer MEDICARE, MEDICAID | LOC: M EKG 12:59 | PROVIDERS: ATTEND Physician Assistant | DX: I48.0 Paroxysmal atrial fibrillation (principal) ==

== ENCOUNTER → 2024-08-12 | Outpatient (REF) | payer MEDICARE, MEDICAID ==
[~2024-08-12] MED LIST changes: -ESSE250T PO; +MAGN250T17 PO
[2024-08-12 10:59] LABS: HEMOGLOBIN 11.9 g/dl (12.0-15.5); MEAN CORPUSCULAR HEMOGLOBIN 29.3 pg (27.0-33.0); MEAN CORPUSCULAR HGB CONC 32.2 g/dl (32.0-36.5); MEAN CORPUSCULAR VOLUME 91.1 fl (80.0-96.0); PLATELET COUNT, AUTOMATED 209 10^3/uL (150-450); RED BLOOD COUNT 4.06 10^6/uL (4.00-5.40); WHITE BLOOD COUNT 5.7 10^3/uL (4.0-10.0)
[2024-08-12 11:25] LABS: CALCIUM LEVEL 9.3 MG/DL (8.3-10.6); CREATININE FOR GFR 0.9 MG/DL (0.55-1.30); GLOMERULAR FILTRATION RATE 61.5 (>32); POTASSIUM SERUM 4.4 MMOL/L (3.5-5.1)
== END ==
LOC: SKLAB4 09:37
PROVIDERS: ATTEND Internal Medicine
DX: R11.10 Vomiting, unspecified (principal)

== ENCOUNTER → 2024-09-19 | Outpatient (REF) | payer MEDICARE, MEDICAID ==
[~2024-09-19] MED LIST changes: -AMIO200T49 PO; +AMIO200T54 PO
[2024-09-19 08:27] LABS: PHOSPHORUS LEVEL 3.5 MG/DL (2.4-5.1)
[2024-09-19 08:28] LABS: PTH INTACT 19.8 PG/ML (18.5-88.0)
[2024-09-19 08:30] LABS: TOTAL 25(OH) VITAMIN D 42.6 NG/ML (20.0-100.0)
[2024-09-19 08:39] LABS: HEMOGLOBIN A1c 5.7 % (4.0-6.0)
== END ==
LOC: SKLAB4 07:00
PROVIDERS: ATTEND Internal Medicine
DX: E55.9 Vitamin D deficiency, unspecified (principal); E11.9 Type 2 diabetes mellitus without complications

== ENCOUNTER → 2024-11-21 | Outpatient (REF) | payer MEDICARE, MEDICAID ==
[~2024-11-21] MED LIST changes: +ERGO125013 PO; +PROZ10CA11 PO; -PROZ10CA7 PO; +SENN-225 PO; -SENO8.6T5 PO; -VITA500045 PO
[2024-11-21 09:37] LABS: PLATELET COUNT, AUTOMATED 262 10^3/uL (150-450)
[2024-11-21 10:13] LABS: ALT/SGPT 51.0 U/L (7.0-40); AST/SGOT 46.0 U/L (<34); CALCIUM LEVEL 9.2 MG/DL (8.3-10.6); CARBON DIOXIDE LEVEL 29.0 MMOL/L (20-31); CHLORIDE LEVEL 104.0 MMOL/L (98-107); CREATININE FOR GFR 0.82 MG/DL (0.55-1.30); GLOMERULAR FILTRATION RATE 68.8 (>32); POTASSIUM SERUM 4.6 MMOL/L (3.5-5.1); SODIUM LEVEL 142.0 MMOL/L (136-145)
[2024-11-21 10:15] LABS: FREE T4 1.87 NG/DL (0.89-1.76)
== END ==
LOC: SKLAB4 07:00
PROVIDERS: ATTEND Internal Medicine
DX: R00.0 Tachycardia, unspecified (principal); E21.3 Hyperparathyroidism, unspecified

== ENCOUNTER → 2025-02-13 | Outpatient (REF) | payer MEDICARE, MEDICAID ==
[2025-02-13 09:16] LABS: BASO # 0.0 10^3/uL (0.0-0.2); BASO % 0.5 % (0.0-1.0); EOS # 0.2 10^3/uL (0.0-0.5); EOS % 2.6 % (0.0-3.0); LYMPH # 2.3 10^3/uL (1.5-5.0); LYMPH % 35.1 % (24.0-44.0); MONO # 0.6 10^3/uL (0.0-0.8); MONO % 8.7 % (2.0-8.0); NEUTROPHILS # 3.5 10^3/uL (1.5-8.5); NEUTROPHILS % 52.6 % (36.0-66.0); PLATELET COUNT, AUTOMATED 280 10^3/uL (150-450)
[2025-02-13 09:26] LABS: ESTIMATED AVERAGE GLUCOSE 123.0 MG/DL (60-110)
[2025-02-13 09:40] LABS: ALT/SGPT 30.0 U/L (7.0-40); AST/SGOT 28.0 U/L (<34); CALCIUM LEVEL 9.3 MG/DL (8.3-10.6); CARBON DIOXIDE LEVEL 31.0 MMOL/L (20-31); CHLORIDE LEVEL 103.0 MMOL/L (98-107); CHOLESTEROL LEVEL 239.0 MG/DL (<200); CHOLESTEROL RISK RATIO 5.33 (<5); CREATININE FOR GFR 0.84 MG/DL (0.55-1.30); GLOMERULAR FILTRATION RATE 66.8 (>32); LDL CHOLESTEROL 132.0 MG/DL (<100); MAGNESIUM LEVEL 1.4 MG/DL (1.8-2.4); NON-HDL-C 194.2 MG/DL; POTASSIUM SERUM 4.7 MMOL/L (3.5-5.1); SODIUM LEVEL 143.0 MMOL/L (136-145); TRIGLYCERIDES LEVEL 311.0 MG/DL (<150)
[2025-02-13 09:41] LABS: FREE T4 1.64 NG/DL (0.89-1.76)
== END ==
LOC: SKLAB4 07:00
PROVIDERS: ATTEND Family Medicine
DX: E78.5 Hyperlipidemia, unspecified (principal); E11.22 Type 2 diabetes mellitus with diabetic chronic kidney disease; N18.9 Chronic kidney disease, unspecified

== ENCOUNTER → 2025-03-21 | Outpatient (REF) | payer MEDICARE, MEDICAID ==
[2025-03-21 11:24] LABS: PLATELET COUNT, AUTOMATED 218 10^3/uL (150-450)
[2025-03-21 11:38] LABS: ESTIMATED AVERAGE GLUCOSE 117.0 MG/DL (60-110)
[2025-03-21 11:57] LABS: ALT/SGPT 28.0 U/L (7.0-40); AST/SGOT 27.0 U/L (<34); CALCIUM LEVEL 9.1 MG/DL (8.3-10.6); CARBON DIOXIDE LEVEL 31.0 MMOL/L (20-31); CHLORIDE LEVEL 106.0 MMOL/L (98-107); CREATININE FOR GFR 0.91 MG/DL (0.55-1.30); GLOMERULAR FILTRATION RATE 60.7 (>32); POTASSIUM SERUM 5.1 MMOL/L (3.5-5.1); SODIUM LEVEL 143.0 MMOL/L (136-145)
[2025-03-21 11:58] LABS: FREE T4 1.62 NG/DL (0.89-1.76)
== END ==
LOC: SKLAB4 07:00
PROVIDERS: ATTEND Family Medicine
DX: R00.0 Tachycardia, unspecified (principal); E11.9 Type 2 diabetes mellitus without complications; E21.3 Hyperparathyroidism, unspecified

== ENCOUNTER → 2025-03-24 | Outpatient (REF) | payer MEDICARE, MEDICAID ==
[2025-03-24 10:23] LABS: PLATELET COUNT, AUTOMATED 222 10^3/uL (150-450)
[2025-03-24 10:53] LABS: CALCIUM LEVEL 9.2 MG/DL (8.3-10.6); CARBON DIOXIDE LEVEL 27.0 MMOL/L (20-31); CHLORIDE LEVEL 105.0 MMOL/L (98-107); CREATININE FOR GFR 0.94 MG/DL (0.55-1.30); GLOMERULAR FILTRATION RATE 58.4 (>32); POTASSIUM SERUM 4.3 MMOL/L (3.5-5.1); SODIUM LEVEL 141.0 MMOL/L (136-145)
== END ==
LOC: SKLAB4 07:00
PROVIDERS: ATTEND Family Medicine
DX: N18.9 Chronic kidney disease, unspecified (principal); I50.9 Heart failure, unspecified

== ENCOUNTER → 2025-03-25 | Outpatient (REF) | payer MEDICARE, MEDICAID | LOC: SKLAB4 15:00 | PROVIDERS: ATTEND Internal Medicine | DX: I48.91 Unspecified atrial fibrillation (principal); I45.2 Bifascicular block ==